=== PATIENT | male | born 1955 | race Caucasian/White ===

== ENCOUNTER 2019-07-18 13:35 | Inpatient (IN) | payer OTHER ==
[2019-07-18] MEDS ORDERED: PIPERACILLIN/TAZOB 4.5 GM 4.5 GM in DEXTROSE 5%-WATER 100 ML IVPB ONE (15:42)
[2019-07-18] MEDS ORDERED: VANCOMYCIN 1,000 MG in DEXTROSE 5%-WATER - 250 ML IVPB ONE (15:43)
--- NOTE | 2019-07-18 16:12 | PDOC ---
History of Present Illness - General Chief Complaint: Wound Stated Complaint: LT FOOT PAIN/WOUND Time Seen by Provider: 07/18/19 14:30 History Source: Patient Exam Limitations: No Limitations - History of Present Illness Initial Comments: 07/18/19 15:12 64-year-old male with history of uncontrolled diabetes presents ED with worsening left toe wound. Patient states due to the neuropathy he is unable to feel discomfort but states over the past month the skin has darkened and now has open wounds to the left third toe. Patient states left second toe amputation [address] Gonzales and seen approximately 1 year ago. Patient states has been seen by the room service associate on [facility], last visit being 2 months ago. Patient denies fever, chills or radiation of pain. Is this a multiple visit Asthma Patient?: Yes Timing/Duration: getting worse Severity: moderate Associated Symptoms: reports: other Past History - Travel Traveled outside of the country in the last 30 days: No Close contact w/someone who was outside of country & ill: No - Past Medical History Allergies/Adverse Reactions: Allergies Allergy/AdvReac Type Severity Reaction Status Date / Time No Known Allergies Allergy Verified 07/18/19 13:52 Home Medications: Ambulatory Orders Collagenase Clostridium Hist. [Santyl] 1 applic TP DAILY #90 oint...g. 07/27/17 Becaplermin [Regranex] 15 gm TP DAILY #1 gel..gram. 08/07/17 COPD: No Diabetes: Yes HTN: Yes - Psycho Social/Smoking Cessation Hx Smoking History: Never smoked Have you smoked in the past 12 months: No Information on smoking cessation initiated: No Hx Alcohol Use: No Drug/Substance Use Hx: No Patient Lives Alone: Yes Lives with/in: lives alone Review of Systems - Review of Systems Able to Perform ROS?: Yes Constitutional: No: Symptoms Reported HEENTM: No: Symptoms Reported Respiratory: No: Symptoms reported Cardiac (ROS): No: Symptoms Reported ABD/GI: No: Symptoms Reported Musculoskeletal: Yes: Other Integumentary: Yes: Change in Color Neurological: No: Symptoms reported Endocrine: No: Symptoms Reported Hematologic/Lymphatic: No: Symptoms Reported *Physical Exam - Vital Signs Last Vital Signs Temp Pulse Resp BP Pulse Ox 98.1 F 106 H 16 151/63 100 07/18/19 13:48 07/18/19 13:48 07/18/19 13:48 07/18/19 13:48 07/18/19 13:48 - Physical Exam General Appearance: Yes: Nourished, Appropriately Dressed. No: Apparent Distress HEENT: negative: Pale Conjunctivae Neck: positive: Supple Respiratory/Chest: positive: Lungs Clear, Normal Breath Sounds. negative: Respiratory Distress, Accessory Muscle Use Cardiovascular: positive: Regular Rhythm, Tachycardia (100). negative: Murmur Vascular Pulses: Dorsalis-Pedis (R): 2+, Doralis-Pedis (L): 1+ Extremity: positive: Other (Noted necrotic left third toe with opened nonodorous wound to the base of toe dorsally and on the palmar aspect. Patient also with 2 circular cm deep wound to the base of left first toe with intact surrounding skin. No tactile sensation to left third toe) Integumentary: positive: Other Neurologic: positive: Motor Strength 5/5 (Ambulatory) ED Treatment Course - LABORATORY CBC & Chemistry Diagram: 07/18/19 16:23 07/18/19 16:23 - RADIOLOGY Radiology Studies Ordered: Category Date Time Status TOE(S) LEFT [RAD] Stat Radiology 07/18/19 15:40 Ordered Medical Decision Making - Medical Decision Making 07/18/19 15:20 Chief complaint: Worsening left toe wound uncontrolled diabetes no other complaints. Exam. Patient with necrotic left third toe along with wound to the base of toe. Patient also with open wound to the palmar aspect of left foot near the left first toe base. Plan: Septic work-up including preop labs, x-ray along with Zosyn and vancomycin. 07/18/19 17:53 Laboratory Tests 07/18/19 07/18/19 07/18/19 16:23 16:23 16:23 WBC 10.9 H Hgb 12.8 Hct 38.6 Absolute Neuts (auto) 9.1 H Neutrophils % 83.6 H PT with INR INR Sodium 130 L Potassium 4.5 Chloride 95 L Carbon Dioxide 26 Anion Gap 9 BUN 12.2 Creatinine 1.0 Est GFR (CKD-EPI)AfAm 93.08 Est GFR (CKD-EPI)NonAf 80.31 Random Glucose 587 H* Lactic Acid Calcium 9.1 Total Bilirubin 0.4 AST 8 L ALT 16 Alkaline Phosphatase 100 Total Protein 7.7 Albumin 2.9 L Blood Type A POSITIVE Antibody Screen Negative 07/18/19 07/18/19 16:23 16:23 WBC Hgb Hct Absolute Neuts (auto) Neutrophils % PT with INR 13.50 H INR 1.14 H Sodium Potassium Chloride Carbon Dioxide Anion Gap BUN Creatinine Est GFR (CKD-EPI)AfAm Est GFR (CKD-EPI)NonAf Random Glucose Lactic Acid 1.7 Calcium Total Bilirubin AST ALT Alkaline Phosphatase Total Protein Albumin Blood Type Antibody Screen Asked patient last time he took his diabetic medication and states it has been a few months since his insurance lapsed and has not seen his PMD. Ordered second liter of fluid along with beta hydroxy and VBG. 07/18/19 18:46 X-ray reviewed by senior technical writer with noted bony destruction Of third digit along with communication to the first metatarsal micro blogsent to hospitalist. patient pending repeat BGM 07/18/19 18:[address] Lezama is admitting today. Call placed to Dr. Lezama. Discharge - Discharge Information Problems reviewed: Yes Clinical Impression/Diagnosis: Diabetic foot ulcer, Uncontrolled diabetes mellitus - Admission Yes - Follow up/Referral Referrals: Jasvir Solano MD [Primary Care Provider] - - Patient Discharge Instructions - Post Discharge Activity
[2019-07-18] MEDS ORDERED: PIPERACILLIN/TAZOB 4.5 GM 4.5 GM/100 ML BAG IVPB ONE (17:00)
[2019-07-18 17:01] LABS: BASO % 0.3 % (0-2.0); HEMATOCRIT 38.6 % (35.4-49); HEMOGLOBIN 12.8 GM/dL (11.7-16.9); LYMPH % 8.4 % (8-40); MCH 29.2 pg (25.7-33.7); MCHC 33.2 g/dl (32.0-35.9); MEAN CELL VOLUME 87.7 fl (80-96); MEAN PLT VOLUME 8.9 fl (7.5-11.1); MONO % 6.7 % (3.8-10.2); NEUT % 83.6 % (42.8-82.8); PLATELET COUNT 342 K/MM3 (134-434); RDW 12.6 % (11.9-15.9); WHITE BLOOD COUNT 10.9 K/mm3 (4.0-10.0)
[2019-07-18] MEDS ORDERED: VANCOMYCIN 1 GRAM (PRE-DOCKED) 1,000 MG/250 ML BAG IVPB ONE (17:01)
[2019-07-18 17:12] LABS: INR 1.14 (0.83-1.09); PROTHROMBIN TIME (PATIENT) 13.5 SEC (9.7-13.0)
[2019-07-18 17:33] LABS: ALBUMIN 2.9 g/dl (3.4-5.0); BILIRUBIN,TOTAL 0.4 mg/dL (0.2-1); BLOOD UREA NITROGEN 12.2 mg/dL (7-18); CALCIUM 9.1 mg/dL (8.5-10.1); POTASSIUM 4.5 mmol/L (3.5-5.1); TOT PROT 7.7 g/dl (6.4-8.2)
[2019-07-18] MEDS ORDERED: SODIUM CHLORIDE 1,000 ML IV STA ×2 (17:52→17:55)
--- NOTE | 2019-07-18 21:25 | HP ---
Admitting History and Physical - Primary Care Physician PCP: Rick Lezama - Admission History of Present Illness: 64-year-old male with history of uncontrolled diabetes presents ED with worsening left toe wound. Patient states due to the neuropathy he is unable to feel discomfort but states over the past month the skin has darkened and now has open wounds to the left third toe. Patient states left second toe amputation [address] Gonzales and seen approximately 1 year ago. Patient states has been seen by the intellectual property counsel on [facility], last visit being 2 months ago. Patient denies fever, chills or radiation of pain. - Past Medical History Endocrine: Yes: Diabetes Mellitus - Past Surgical History Past Surgical History: Yes: Amputation (ampuitation of the left 2nd toe 5 years ago, and amputation of the right 1st and 2nd toes 2 years ago) - Smoking History Smoking history: Never smoked Have you smoked in the past 12 months: No - Alcohol/Substance Use Hx Alcohol Use: No Home Medications - Allergies Allergies/Adverse Reactions: Allergies Allergy/AdvReac Type Severity Reaction Status Date / Time No Known Allergies Allergy Verified 07/18/19 13:52 - Home Medications Home Medications: Ambulatory Orders Collagenase Clostridium Hist. [Santyl] 1 applic TP DAILY #90 oint...g. 07/27/17 Becaplermin [Regranex] 15 gm TP DAILY #1 gel..gram. 08/07/17 Physical Examination Vital Signs: Vital Signs Temperature 98.1 F 07/18/19 13:48 Pulse Rate 106 H 07/18/19 13:48 Respiratory Rate 16 07/18/19 13:48 Blood Pressure 151/63 07/18/19 13:48 O2 Sat by Pulse Oximetry (%) 100 07/18/19 13:48 Constitutional: Yes: No Distress HENT: Yes: Atraumatic Neck: Yes: Supple Cardiovascular: Yes: Regular Rate and Rhythm Respiratory: Yes: CTA Bilaterally Gastrointestinal: Yes: Normal Bowel Sounds Extremities: Yes: Other (L third toe gangrene) Edema: No Neurological: Yes: Alert, Oriented Labs: CBC, BMP 07/18/19 16:23 07/18/19 16:23 Problem List - Problems (1) Diabetic foot ulcer Assessment/Plan: on iv abx wound care Code(s): E11.621 - TYPE 2 DIABETES MELLITUS WITH FOOT ULCER; L97.509 - NON- PRESSURE CHRONIC ULCER OTH PRT UNSP FOOT W UNSP SEVERITY (2) Uncontrolled diabetes mellitus Assessment/Plan: insulin , bgms Code(s): E11.65 - TYPE 2 DIABETES MELLITUS WITH HYPERGLYCEMIA (3) Open wound of left great toe Code(s): S91.102A - UNSP OPEN WOUND OF LEFT GREAT TOE W/O DAMAGE TO NAIL, INIT Qualifiers: Encounter type: subsequent encounter Qualified Code(s): S91.102D - Unspecified open wound of left great toe without damage to nail, subsequent encounter Assessment/Plan Laboratory Tests 07/18/19 07/18/19 07/18/19 16:23 16:23 16:23 WBC 10.9 H RBC 4.40 Hgb 12.8 Hct 38.6 MCV 87.7 MCH 29.2 MCHC 33.2 RDW 12.6 Plt Count 342 MPV 8.9 Absolute Neuts (auto) 9.1 H Neutrophils % 83.6 H Lymphocytes % 8.4 Monocytes % 6.7 Eosinophils % 1.0 Basophils % 0.3 Nucleated RBC % 0 PT with INR INR Sodium 130 L Potassium 4.5 Chloride 95 L Carbon Dioxide 26 Anion Gap 9 BUN 12.2 Creatinine 1.0 Est GFR (CKD-EPI)AfAm 93.08 Est GFR (CKD-EPI)NonAf 80.31 POC Glucometer Random Glucose 587 H* Lactic Acid Calcium 9.1 Total Bilirubin 0.4 AST 8 L ALT 16 Alkaline Phosphatase 100 Total Protein 7.7 Albumin 2.9 L Beta-Hydroxybutyrate 12.7 H Blood Type A POSITIVE Antibody Screen Negative 07/18/19 07/18/19 07/18/19 16:23 16:23 19:13 WBC RBC Hgb Hct MCV MCH MCHC RDW Plt Count MPV Absolute Neuts (auto) Neutrophils % Lymphocytes % Monocytes % Eosinophils % Basophils % Nucleated RBC % PT with INR 13.50 H INR 1.14 H Sodium Potassium Chloride Carbon Dioxide Anion Gap BUN Creatinine Est GFR (CKD-EPI)AfAm Est GFR (CKD-EPI)NonAf POC Glucometer 443 Random Glucose Lactic Acid 1.7 Calcium Total Bilirubin AST ALT Alkaline Phosphatase Total Protein Albumin Beta-Hydroxybutyrate Blood Type Antibody Screen Active Medications Generic Name Dose Route Start Last Admin Trade Name Freq PRN Reason Stop Dose Admin Acetaminophen 650 mg 07/18/19 21:29 07/19/19 15:40 Tylenol - PO 650 mg Q6H PRN Administration FEVER Heparin Sodium (Porcine) 5,000 unit 07/18/19 22:00 07/19/19 09:03 Heparin - SQ 5,000 unit BID CANDELARIA Administration Piperacillin Sod/Tazobactam 50 mls @ 100 mls/hr 07/19/19 12:15 07/19/19 17:01 Sod 3.375 gm/ Dextrose IVPB 100 mls/hr Q8H-IV CANDELARIA Administration Protocol Insulin Aspart 1 vial 07/18/19 22:00 07/19/19 16:33 Novolog Vial Sliding Scale - SQ 8 unit ACHS CANDELARIA Administration Protocol Oxycodone HCl 10 mg 07/19/19 11:43 07/19/19 15:39 Roxicodone - PO 10 mg Q6H PRN Administration PAIN scale 6-10
[2019-07-18] MEDS ORDERED: ACETAMINOPHEN 325 MG TABLET (FP) PO PRN (21:29)
[2019-07-19] MEDS ORDERED: INSULIN (NOVOLOG) ASPART 100 UNITS/ML 10ML VIAL ONE ×3 (01:40→10:58)
[2019-07-19] MEDS ORDERED: HEPARIN NA (PORCINE) 5,000 UNITS/ML 1ML VIAL ONE (01:41)
[2019-07-19] MEDS: HEPARIN NA (PORCINE) 5,000 UNITS/ML 1ML VIAL SQ SCH ×3 (01:45→21:53)
[2019-07-19] MEDS: INSULIN SLIDING SCALE (NOVOLOG) 1 VIAL SQ SCH ×5 (02:04→21:53)
[2019-07-19 06:17] VITALS: BMI 29.8
[2019-07-19 08:12] LABS: BASO % 0.8 % (0-2.0); EOS % 2.6 % (0-4.5); HEMOGLOBIN 11.7 GM/dL (11.7-16.9); LYMPH % 16.9 % (8-40); MCH 29.3 pg (25.7-33.7); MCHC 34.4 g/dl (32.0-35.9); MEAN CELL VOLUME 85.3 fl (80-96); MEAN PLT VOLUME 8.8 fl (7.5-11.1); MONO % 8.4 % (3.8-10.2); NEUT % 71.3 % (42.8-82.8); PLATELET COUNT 299 K/MM3 (134-434); RBC 3.99 M/mm3 (4.00-5.60); RDW 12.6 % (11.9-15.9); WHITE BLOOD COUNT 8.1 K/mm3 (4.0-10.0)
[2019-07-19 08:19] LABS: ALBUMIN 2.3 g/dl (3.4-5.0); BILIRUBIN,TOTAL 0.5 mg/dL (0.2-1); CALCIUM 8.6 mg/dL (8.5-10.1); CREATININE 0.6 mg/dL (0.55-1.3); POTASSIUM 3.5 mmol/L (3.5-5.1); TOT PROT 6.4 g/dl (6.4-8.2)
--- NOTE | 2019-07-19 08:28 | CONSULT ---
- Consultation REQUESTING PROVIDER: VASCULAR SURGERY CONSULT REQUEST: We have been asked to surgically evaluate this patient for left foot necrotic toe ulcer; 2nd toe PCP: Rick Lezama HPI: Called to eval 64 yo male with PMHx as noted below. [facility] for further evaluation of his left foot 3rd toe necrotic (dry), bottom of foot with clean ulcer. Uncontrolled diabetes with neuropathy. Per medical charting, patient is followed by a Warehouse Forklift Operator (patient can't remember name of), last visit ~ 2 months ago. Patient [facility] by [facility]. States he was last seen at [facility] about 2 months ago for same problem. Denies n/v/f/c, CP, palpitations, irregular heart beat, SOB or YAN. PMHx: DM with neuropathy PSHx: Amputation (right foot:1st & 2nd toes 2017) Home Meds: Becaplermin [Regranex] 15 gm TP DAILY Allergies: NKDA ROS: CONSTITUTIONAL: Absent: diaphoresis, generalized weakness, malaise, loss of appetite, weight change CARDIOVASCULAR: Absent: lightheadedness, peripheral edema RESPIRATORY: Absent: cough, wheezing, stridor, hemoptysis GASTROINTESTINAL:Absent: abdominal pain, abdominal distension, melena, hematochezia GENITOURINARY: Absent: dysuria, frequency, urgency, hesitancy, hematuria, flank pain, genital pain MUSCULOSKELETAL: Absent: myalgia, arthralgia, joint swelling, back pain, neck pain SKIN: Absent: rash, itching, pallor HEMATOLOGIC/IMMUNOLOGIC: Absent: easy bleeding, easy bruising, lymphadenopathy NEUROLOGIC: Absent: headache, focal weakness, dizziness, unsteady gait, seizure , mental status changes, PSYCHIATRIC: Absent: anxiety, depression, suicidal or homicidal ideation, hallucinations. PE: GENERAL: A&O. NAD. HEAD: Normal with no signs of trauma. EYES: PERRL, sclera anicteric, conjunctiva clear. LUNGS: CTA bilat HEART: RRR ABDOMEN: Soft, nontender, not distended, normoactive bowel sounds, no guarding, no rebound, no masses. No organomegaly. MUSCULOSKELETAL: Normal ROM at all joints. No bony deformities or tenderness. No CVA tenderness. UE: 2+ pulses, warm, well-perfused. No cyanosis. Cap refill <2 seconds. No peripheral edema. LE: RLE: 1st & 2nd toe amputation...well healed warm. DP & PT palpable. LLE: warm. 3rd toe with necrotic toe (demarcated, no odor). 2nd toe amputation. Palpable DP & PT. Venous stasis changes. Peripheral neuropathy (decreased sensation to light touch). Plantar ulcer (shallow, clean, ~ 2.54 x 2.54 cm) to base of left first toe with intact surrounding skin. NEUROLOGICAL: Normal speech, gait not observed. PSYCH: Cooperative. Good eye contact. Appropriate mood and affect. Last Vital Signs Temp Pulse Resp BP Pulse Ox 97.9 F 73 18 143/82 100 07/19/19 06:11 07/19/19 06:11 07/19/19 06:11 07/19/19 06:11 07/19/19 03:31 CBC, BMP 07/19/19 06:53 07/19/19 06:53 INR, PTT INR 1.14 (0.83-1.09) H 07/18/19 16:23 Blood Type Blood Type A POSITIVE 07/18/19 16:23 Problem List - Problems (1) Toe necrosis Assessment/Plan: Cont wound management as ordered. No need for further vascular intervention as patient has palpable DP & PT. Further management as per Podiatry if warranted --> oM consulted. Tight glycemic control f/u as out-patient with Dr. Gonzales for continued wound management On behalf of Dr. Gonzales, thank you for the opportunity to participate in your patient's care. Code(s): I96 - GANGRENE, NOT ELSEWHERE CLASSIFIED (2) Diabetic foot ulcer Code(s): E11.621 - TYPE 2 DIABETES MELLITUS WITH FOOT ULCER; L97.509 - NON- PRESSURE CHRONIC ULCER OTH PRT UNSP FOOT W UNSP SEVERITY (3) Uncontrolled diabetes mellitus Code(s): E11.65 - TYPE 2 DIABETES MELLITUS WITH HYPERGLYCEMIA Visit type - Case Type Case Type: ED Admission - Emergency Emergency Visit: Yes ED Registration Date: 07/18/19 Care time: The patient presented to the Emergency Department on the above date and was hospitalized for further evaluation of their emergent condition. - New patient This patient is new to me today: Yes Date on this admission: 07/19/19
[2019-07-19] MEDS ORDERED: oxyCODONE HCL 5 MG TABLET PO PRN (11:43)
--- NOTE | 2019-07-19 12:11 | CON.ID ---
Consult Consult Specialty:: infectious diseases Referred by:: dr shultz Reason for Consultation:: cellulitis of the foot and gangrene of the toe - History of Present Illness Chief Complaint: non healing wound of the leg with change in color History of Present Illness: 64-year-old male with history of uncontrolled diabetes admitted with worsening left toe wound. Patient states due to the neuropathy he is unable to feel discomfort but states over the past month the skin has darkened and now has open wounds to the left third toe. Patient states left second toe amputation [address] Gonzales and seen approximately 1 year ago. Patient states has been seen by the assistant professor of anthropology on [facility], last visit being 2 months ago. Patient denies fever, chills or radiation of pain. patient mentions that this has just not been healing and the color has changed to black - History Source History Provided By: Patient, Medical Record Limitations to Obtaining History: Language Barrier - Past Medical History Endocrine: Yes: Diabetes Mellitus - Past Surgical History Past Surgical History: Yes: Amputation (ampuitation of the left 2nd toe 5 years ago, and amputation of the right 1st and 2nd toes 2 years ago) - Alcohol/Substance Use Hx Alcohol Use: No - Smoking History Smoking history: Never smoked Have you smoked in the past 12 months: No Home Medications - Allergies Allergies/Adverse Reactions: Allergies Allergy/AdvReac Type Severity Reaction Status Date / Time No Known Allergies Allergy Verified 07/18/19 13:52 - Home Medications Home Medications: Ambulatory Orders Collagenase Clostridium Hist. [Santyl] 1 applic TP DAILY #90 oint...g. 07/27/17 Becaplermin [Regranex] 15 gm TP DAILY #1 gel..gram. 08/07/17 Review of Systems - Review of Systems Constitutional: reports: No Symptoms Eyes: reports: No Symptoms HENT: reports: No Symptoms Neck: reports: No Symptoms Cardiovascular: reports: No Symptoms Respiratory: reports: No Symptoms Gastrointestinal: reports: No Symptoms Genitourinary: reports: No Symptoms Musculoskeletal: reports: Other Integumentary: reports: Erythema, Wound Neurological: reports: No Symptoms Endocrine: reports: No Symptoms Hematology/Lymphatic: reports: No Symptoms Psychiatric: reports: No Symptoms Physical Exam Vital Signs: Vital Signs Temperature 98.7 F 07/19/19 10:00 Pulse Rate 78 07/19/19 10:00 Respiratory Rate 18 07/19/19 10:00 Blood Pressure 139/69 07/19/19 10:00 O2 Sat by Pulse Oximetry (%) 97 07/19/19 09:00 Constitutional: Yes: Well Nourished, No Distress, Calm Eyes: Yes: Conjunctiva Clear HENT: Yes: Atraumatic, Normocephalic Cardiovascular: Yes: Regular Rate and Rhythm Respiratory: Yes: Regular, CTA Bilaterally Gastrointestinal: Yes: Normal Bowel Sounds, Soft Musculoskeletal: Yes: WNL Extremities: Yes: Erythema, Other Integumentary: Yes: Other (3rd toe with necrotic toe) Wound/Incision: Yes: Open to air, Draining, Other (gangrene of the left 3rd toe) Neurological: Yes: Alert, Oriented Labs: CBC, BMP 07/19/19 06:53 07/19/19 06:53 Imaging - Results X-ray: Report Reviewed, Image Reviewed Assessment/Plan this patient coming in with diabetic wound and the discoloration of the toe after looking at the toe this is gangrene plan needs amputation wound care abx started await for cx report rest as per the team
[2019-07-19] MEDS ORDERED: DEXTROSE 5%-WATER - 50 ML IVPB ONE ×2 (12:45→16:39)
[2019-07-19] MEDS ORDERED: PIPERACILLIN/TAZOBACTAM 3.375 GM VIAL IVPB ONE ×2 (12:45→16:39)
[2019-07-19] MEDS: PIPERACILLIN/TAZOB 3.375 GM 3.375 GM in DEXTROSE 5%-WATER - 50 ML IVPB SCH ×2 (12:57→17:01)
--- NOTE | 2019-07-19 15:39 | CONSULT ---
Consult - text type - Consultation Consultation Note: Podiatry Consultation: Pleasant 64 year old diabetic male presents with left foot diabetic ulcer and gangrenous changes third digit. Patient endorses a one month history of third digit breakdown. He has noted the toe getting progressively worse and now is starting to detach from the foot. He denies F/V/N/C/SOB/CP. He is afebrile. He does report seeing a supervising editor news reel outside of hospital, does not know the name, and has been seen in the past at [facility]. PMHx: IDDM, HTN, s/p multiple amputations bilateral feet Meds: noted ALL: NKMA THAIS: L foot: pedal pulses palpable 2/4, TG wnl. There is dry gangrenous changes distal 1/2 of third digit, fibrotic base proximally, mummified distal tip of digit. Plantar sub-metatarsal skin macerated with some serous drainage, no purulent drainage, no soft tissue crepitus. There is a sub-first metatarsal diabetic ulcer with granular base, hyperkeratotic edges, no bone exposed, no purulence, no fluctuance, no streaking cellulitis. L foot XR: destructive process distal phalanx third digit Imp: 64 year old diabetic male with left sub-first metatarsal diabetic ulcer, gangrene with osteomyelitis third digit 1. IV abx per infectious disease 2. Local care 3. MRI left foot to evaluate level of osteomyelitis third digit and osteomyelitis first MTPJ 4. Will need amputation. Discussed this with patient. Will plan for . 5. Will follow. Thank you for the courtesy of this consultation. Max Hassan DPM
--- NOTE | 2019-07-19 18:59 | PN ---
Progress Note, Physician - Current Medication List Current Medications: Active Medications Acetaminophen (Tylenol -) 650 mg PO Q6H PRN PRN Reason: FEVER Last Admin: 07/19/19 15:40 Dose: 650 mg Heparin Sodium (Porcine) (Heparin -) 5,000 unit SQ BID CANDELARIA Last Admin: 07/19/19 09:03 Dose: 5,000 unit Piperacillin Sod/Tazobactam (Sod 3.375 gm/ Dextrose) 50 mls @ 100 mls/hr IVPB Q8H-IV CANDELARIA; Protocol Last Admin: 07/19/19 17:01 Dose: 100 mls/hr Insulin Aspart (Novolog Vial Sliding Scale -) 1 vial SQ ACHS CANDELARIA; Protocol Last Admin: 07/19/19 16:33 Dose: 8 unit Oxycodone HCl (Roxicodone -) 10 mg PO Q6H PRN PRN Reason: PAIN scale 6-10 Last Admin: 07/19/19 15:39 Dose: 10 mg - Objective Vital Signs: Vital Signs Temperature 99.0 F 07/19/19 13:44 Pulse Rate 81 07/19/19 13:44 Respiratory Rate 20 07/19/19 13:44 Blood Pressure 139/61 07/19/19 13:44 O2 Sat by Pulse Oximetry (%) 97 07/19/19 09:00 Constitutional: Yes: No Distress HENT: Yes: Atraumatic Neck: Yes: Supple Cardiovascular: Yes: Regular Rate and Rhythm Respiratory: Yes: CTA Bilaterally Gastrointestinal: Yes: Normal Bowel Sounds Extremities: Yes: Other (L foot infection) Neurological: Yes: Alert, Oriented Labs: CBC, BMP 07/19/19 06:53 07/19/19 06:53 INR, PTT INR 1.14 (0.83-1.09) H 07/18/19 16:23 Problem List - Problems (1) Diabetic foot ulcer Assessment/Plan: on iv abx wound care Code(s): E11.621 - TYPE 2 DIABETES MELLITUS WITH FOOT ULCER; L97.509 - NON- PRESSURE CHRONIC ULCER OTH PRT UNSP FOOT W UNSP SEVERITY (2) Uncontrolled diabetes mellitus Assessment/Plan: insulin , bgms Code(s): E11.65 - TYPE 2 DIABETES MELLITUS WITH HYPERGLYCEMIA (3) Open wound of left great toe Code(s): S91.102A - UNSP OPEN WOUND OF LEFT GREAT TOE W/O DAMAGE TO NAIL, INIT Qualifiers: Encounter type: subsequent encounter Qualified Code(s): S91.102D - Unspecified open wound of left great toe without damage to nail, subsequent encounter
[2019-07-20] MEDS ORDERED: PIPERACILLIN/TAZOBACTAM 3.375 GM VIAL IVPB ONE ×3 (01:18→16:27)
[2019-07-20] MEDS ORDERED: DEXTROSE 5%-WATER - 50 ML IVPB ONE ×3 (01:18→16:28)
[2019-07-20] MEDS: PIPERACILLIN/TAZOB 3.375 GM 3.375 GM in DEXTROSE 5%-WATER - 50 ML IVPB SCH ×3 (01:51→17:08)
[2019-07-20] MEDS: INSULIN SLIDING SCALE (NOVOLOG) 1 VIAL SQ SCH ×4 (06:06→22:50)
[2019-07-20] MEDS: HEPARIN NA (PORCINE) 5,000 UNITS/ML 1ML VIAL SQ SCH ×2 (09:35→22:49)
--- NOTE | 2019-07-20 11:24 | PN ---
Progress Note, Physician History of Present Illness: stable no new issues - Current Medication List Current Medications: Active Medications Acetaminophen (Tylenol -) 650 mg PO Q6H PRN PRN Reason: FEVER Last Admin: 07/19/19 15:40 Dose: 650 mg Heparin Sodium (Porcine) (Heparin -) 5,000 unit SQ BID CANDELARIA Last Admin: 07/20/19 09:35 Dose: 5,000 unit Piperacillin Sod/Tazobactam (Sod 3.375 gm/ Dextrose) 50 mls @ 100 mls/hr IVPB Q8H-IV CANDELARIA; Protocol Last Admin: 07/20/19 09:36 Dose: 100 mls/hr Insulin Aspart (Novolog Vial Sliding Scale -) 1 vial SQ ACHS CANDELARIA; Protocol Last Admin: 07/20/19 06:06 Dose: 6 unit Oxycodone HCl (Roxicodone -) 10 mg PO Q6H PRN PRN Reason: PAIN scale 6-10 Last Admin: 07/19/19 15:39 Dose: 10 mg - Objective Vital Signs: Vital Signs Temperature 98.4 F 07/20/19 10:00 Pulse Rate 79 07/20/19 10:00 Respiratory Rate 20 07/20/19 10:00 Blood Pressure 110/59 L 07/20/19 10:00 O2 Sat by Pulse Oximetry (%) 99 07/20/19 09:00 Constitutional: Yes: No Distress, Calm Cardiovascular: Yes: S1, S2 Respiratory: Yes: Regular, CTA Bilaterally Gastrointestinal: Yes: Normal Bowel Sounds, Soft Musculoskeletal: Yes: WNL Extremities: Yes: Other Wound/Incision: Yes: Dressing Dry and Intact Neurological: Yes: Alert, Oriented Psychiatric: Yes: Alert, Oriented Labs: CBC, BMP 07/19/19 06:53 07/19/19 06:53 INR, PTT INR 1.14 (0.83-1.09) H 07/18/19 16:23 Assessment/Plan Problem List - Problems (1) Diabetic foot ulcer Code(s): E11.621 - TYPE 2 DIABETES MELLITUS WITH FOOT ULCER; L97.509 - NON- PRESSURE CHRONIC ULCER OTH PRT UNSP FOOT W UNSP SEVERITY (2) Uncontrolled diabetes mellitus Code(s): E11.65 - TYPE 2 DIABETES MELLITUS WITH HYPERGLYCEMIA (3) Open wound of left great toe Code(s): S91.102A - UNSP OPEN WOUND OF LEFT GREAT TOE W/O DAMAGE TO NAIL, INIT Qualifiers: Encounter type: subsequent encounter Qualified Code(s): S91.102D - Unspecified open wound of left great toe without damage to nail, subsequent encounter wound infection gangrene of the toe plan continue abx await for identification and sensitivities wound care rest as per the team
--- NOTE | 2019-07-20 16:04 | PN ---
Progress Note (short form) - Note Progress Note: Podiatry Consultation: Pleasant 64 year old diabetic male presents with left foot diabetic ulcer and gangrenous changes third digit. Understands he will need the digit amputated . Is pending MRI still for eval of plantar 1st MPJ ulceration. PMHx: IDDM, HTN, s/p multiple amputations bilateral feet Meds: noted ALL: NKMA THAIS: L foot: pedal pulses palpable 2/4, TG wnl. There is dry gangrenous changes distal 1/2 of third digit, fibrotic base proximally, mummified distal tip of digit. Plantar sub-metatarsal skin macerated with some serous drainage, increased maceration noted with some drainage, There is a sub-first metatarsal diabetic ulcer with granular base, hyperkeratotic edges, no bone exposed, no purulence, no fluctuance, no streaking cellulitis. L foot XR: destructive process distal phalanx third digit Imp: 64 year old diabetic male with left sub-first metatarsal diabetic ulcer, gangrene with osteomyelitis third digit Evaluated and reviewed betadine applied for amp tomorrow at Noon NPO past midnight Will follow
--- NOTE | 2019-07-20 16:31 | PN ---
Progress Note, Physician - Current Medication List Current Medications: Active Medications Acetaminophen (Tylenol -) 650 mg PO Q6H PRN PRN Reason: FEVER Last Admin: 07/19/19 15:40 Dose: 650 mg Heparin Sodium (Porcine) (Heparin -) 5,000 unit SQ BID CANDELARIA Last Admin: 07/20/19 09:35 Dose: 5,000 unit Piperacillin Sod/Tazobactam (Sod 3.375 gm/ Dextrose) 50 mls @ 100 mls/hr IVPB Q8H-IV CANDELARIA; Protocol Last Admin: 07/20/19 09:36 Dose: 100 mls/hr Insulin Aspart (Novolog Vial Sliding Scale -) 1 vial SQ ACHS CANDELARIA; Protocol Last Admin: 07/20/19 16:17 Dose: 10 unit Oxycodone HCl (Roxicodone -) 10 mg PO Q6H PRN PRN Reason: PAIN scale 6-10 Last Admin: 07/19/19 15:39 Dose: 10 mg - Objective Vital Signs: Vital Signs Temperature 98.5 F 07/20/19 15:31 Pulse Rate 80 07/20/19 15:31 Respiratory Rate 20 07/20/19 15:31 Blood Pressure 131/59 L 07/20/19 15:31 O2 Sat by Pulse Oximetry (%) 99 07/20/19 09:00 Constitutional: Yes: No Distress HENT: Yes: Atraumatic Neck: Yes: Supple Cardiovascular: Yes: Regular Rate and Rhythm Respiratory: Yes: CTA Bilaterally Gastrointestinal: Yes: Normal Bowel Sounds Extremities: Yes: WNL Edema: No Neurological: Yes: Alert, Oriented Labs: CBC, BMP 07/19/19 06:53 07/19/19 06:53 INR, PTT INR 1.14 (0.83-1.09) H 07/18/19 16:23 Problem List - Problems (1) Diabetic foot ulcer Assessment/Plan: on iv abx wound care Code(s): E11.621 - TYPE 2 DIABETES MELLITUS WITH FOOT ULCER; L97.509 - NON- PRESSURE CHRONIC ULCER OTH PRT UNSP FOOT W UNSP SEVERITY (2) Uncontrolled diabetes mellitus Assessment/Plan: insulin , bgms Code(s): E11.65 - TYPE 2 DIABETES MELLITUS WITH HYPERGLYCEMIA (3) Open wound of left great toe Code(s): S91.102A - UNSP OPEN WOUND OF LEFT GREAT TOE W/O DAMAGE TO NAIL, INIT Qualifiers: Encounter type: subsequent encounter Qualified Code(s): S91.102D - Unspecified open wound of left great toe without damage to nail, subsequent encounter (4) Osteomyelitis Assessment/Plan: iv abx s/p toe surgery Code(s): M86.9 - OSTEOMYELITIS, UNSPECIFIED (5) Toe necrosis Code(s): I96 - GANGRENE, NOT ELSEWHERE CLASSIFIED
[2019-07-21] MEDS ORDERED: SODIUM CHLORIDE 1,000 ML IV SCH (00:30)
[2019-07-21] MEDS ORDERED: PIPERACILLIN/TAZOBACTAM 3.375 GM VIAL IVPB ONE ×3 (01:27→16:06)
[2019-07-21] MEDS ORDERED: DEXTROSE 5%-WATER - 50 ML IVPB ONE ×3 (01:27→16:07)
[2019-07-21] MEDS: PIPERACILLIN/TAZOB 3.375 GM 3.375 GM in DEXTROSE 5%-WATER - 50 ML IVPB SCH ×3 (01:33→18:21)
[2019-07-21] MEDS: INSULIN SLIDING SCALE (NOVOLOG) 1 VIAL SQ SCH ×5 (06:16→21:20)
[2019-07-21 08:15] LABS: BASO % 0.7 % (0-2.0); EOS % 2.8 % (0-4.5); HEMATOCRIT 35.4 % (35.4-49); HEMOGLOBIN 12.1 GM/dL (11.7-16.9); LYMPH % 20.2 % (8-40); MCH 29.4 pg (25.7-33.7); MCHC 34.1 g/dl (32.0-35.9); MEAN CELL VOLUME 86.2 fl (80-96); MEAN PLT VOLUME 8.5 fl (7.5-11.1); MONO % 7.5 % (3.8-10.2); NEUT % 68.8 % (42.8-82.8); PLATELET COUNT 296 K/MM3 (134-434); RDW 12.6 % (11.9-15.9); WHITE BLOOD COUNT 6.3 K/mm3 (4.0-10.0)
[2019-07-21 08:21] LABS: INR 1.16 (0.83-1.09); PROTHROMBIN TIME (PATIENT) 13.7 SEC (9.7-13.0)
[2019-07-21 08:55] LABS: ALBUMIN 2.4 g/dl (3.4-5.0); BILIRUBIN,TOTAL 0.5 mg/dL (0.2-1); BLOOD UREA NITROGEN 8.7 mg/dL (7-18); CALCIUM 8.8 mg/dL (8.5-10.1); CREATININE 0.8 mg/dL (0.55-1.3); POTASSIUM 4.5 mmol/L (3.5-5.1); TOT PROT 6.8 g/dl (6.4-8.2)
[2019-07-21] MEDS: HEPARIN NA (PORCINE) 5,000 UNITS/ML 1ML VIAL SQ SCH ×2 (10:15→21:19)
[2019-07-21] MEDS ORDERED: LIDOCAINE HCL 1%, 10 MG/ML (20ML VIAL) ONE (11:13)
[2019-07-21] MEDS ORDERED: BUPIVACAINE HCL/PF 0.5% (5 MG/ML) 30 ML VIAL IJ ONE (11:13)
[2019-07-21] MEDS ORDERED: ONDANSETRON 4 MG/2 ML VIAL IVPUSH PRN ×2 (11:37→13:15)
[2019-07-21] MEDS ORDERED: LACTATED RINGERS SOLUTION 1,000 ML IV SCH ×2 (11:45→13:15)
[2019-07-21] MEDS ORDERED: PROPOFOL 20 ML ONE (11:48)
[2019-07-21] MEDS ORDERED: MIDAZOLAM HCL 2 MG/2 ML SINGLE DOSE VIAL ONE (11:48)
[2019-07-21] MEDS ORDERED: LIDOCAINE HCL/PF 2% SDV 5ML VIAL ONE (11:48)
[2019-07-21] MEDS ORDERED: LIDOCAINE HCL 1%, 10 MG/ML (20ML VIAL) NR ONE (12:07)
--- NOTE | 2019-07-21 12:46 | OP ---
Operative Note - Note: Operative Date: 07/21/19 Pre-Operative Diagnosis: left 3rd digit gangrene Operation: left 3rd ray amp and bone biopsy Findings: see dictation Post-Operative Diagnosis: Same as Pre-op Surgeon: Benigno Fallon Anesthesia: Local, MAC Specimens Removed: 3rd digit path. wound culture. metatarsal - micro bone bx. metatarsal - path Estimated Blood Loss (mls): 10 Operative Report Dictated: Yes
--- NOTE | 2019-07-21 13:12 | PN ---
Progress Note, Physician History of Present Illness: stable no new issues post op d/w podiatry team cx results noted - Current Medication List Current Medications: Active Medications Acetaminophen (Tylenol -) 650 mg PO Q6H PRN PRN Reason: FEVER Last Admin: 07/19/19 15:40 Dose: 650 mg Fentanyl (Sublimaze Injection -) 50 mcg IVPUSH [id number] PRN PRN Reason: PAIN-PACU ORDER X 4 DOSES ONLY Stop: 07/22/19 11:36 Heparin Sodium (Porcine) (Heparin -) 5,000 unit SQ BID CANDELARIA Last Admin: 07/21/19 10:15 Dose: Not Given Piperacillin Sod/Tazobactam (Sod 3.375 gm/ Dextrose) 50 mls @ 100 mls/hr IVPB Q8H-IV CANDEL[facility]IA; Protocol Last Admin: 07/21/19 10:17 Dose: 100 mls/hr Sodium Chloride (Normal Saline -) 1,000 mls @ 50 mls/hr IV ASDIR CANDELARIA Last Admin: 07/21/19 01:00 Dose: 50 mls/hr Lactated Ringer's (Lactated Ringers Solution) 1,000 mls @ 125 mls/hr IV ASDIR CANDELARIA Insulin Aspart (Novolog Vial Sliding Scale -) 1 vial SQ ACHS [facility]; Protocol Last Admin: 07/21/19 11:30 Dose: Not Given Ondansetron HCl (Zofran Injection) 4 mg IVPUSH Q6H PRN PRN Reason: NAUSEA AND/OR VOMITING Stop: 07/22/19 11:36 Oxycodone HCl (Roxicodone -) 10 mg PO Q6H PRN PRN Reason: PAIN scale 6-10 Last Admin: 07/19/19 15:39 Dose: 10 mg - Objective Vital Signs: Vital Signs Temperature 98.6 F 07/21/19 10:00 Pulse Rate 76 07/21/19 10:00 Respiratory Rate 17 07/21/19 10:00 Blood Pressure 132/64 07/21/19 10:00 O2 Sat by Pulse Oximetry (%) 98 07/21/19 10:20 Constitutional: Yes: No Distress, Calm Cardiovascular: Yes: S1, S2 Respiratory: Yes: Regular, CTA Bilaterally Gastrointestinal: Yes: Normal Bowel Sounds, Soft Musculoskeletal: Yes: WNL Extremities: Yes: WNL Wound/Incision: Yes: Dressing Dry and Intact Neurological: Yes: Alert, Oriented Psychiatric: Yes: Alert, Oriented Labs: CBC, BMP 07/21/19 07:35 07/21/19 07:35 INR, PTT INR 1.16 (0.83-1.09) H 07/21/19 07:35 Assessment/Plan Problem List - Problems (1) Diabetic foot ulcer Code(s): E11.621 - TYPE 2 DIABETES MELLITUS WITH FOOT ULCER; L97.509 - NON- PRESSURE CHRONIC ULCER OTH PRT UNSP FOOT W UNSP SEVERITY (2) Uncontrolled diabetes mellitus Code(s): E11.65 - TYPE 2 DIABETES MELLITUS WITH HYPERGLYCEMIA (3) Open wound of left great toe Code(s): S91.102A - UNSP OPEN WOUND OF LEFT GREAT TOE W/O DAMAGE TO NAIL, INIT Qualifiers: Encounter type: subsequent encounter Qualified Code(s): S91.102D - Unspecified open wound of left great toe without damage to nail, subsequent encounter wound infection gangrene of the toe plan continue abx will add vanco wound care rest as per the team
[2019-07-21] MEDS ORDERED: oxyCODONE HCL 5 MG TABLET PO PRN (13:15)
--- NOTE | 2019-07-21 13:23 | HP ---
DATE OF ADMISSION: 07/18/2019 PREOPERATIVE DIAGNOSIS: Left foot 3rd digit wet gangrene. POSTOPERATIVE DIAGNOSIS: Left foot 3rd digit wet gangrene. PROCEDURE PERFORMED: Left 3rd digit ray amputation and bone biopsy. SURGEON: Benigno Fallon DPM ANESTHESIA: IV sedation with local injections. INDICATIONS: Patient is a 64-year-old male with the above-mentioned diagnosis. Patient exhausted all forms of conservative treatment and requires further surgical interventions for the conditions listed above. After careful explanation of the risks, benefits, and complications for the proposed procedure, patient signed the consent form. All questions and concerns were addressed at this time. Prior to taking the patient to the OR, n.p.o. status was verified. Preoperative antibiotics were given. OPERATIVE PROCEDURE: Patient brought to the operating room, placed on operating table in supine position. No pneumatic ankle tourniquet was utilized for this procedure. Following induction of IV sedation, a local injection of 10 mL of 1% lidocaine plain were injected to the patient's left foot in local block-type fashion without complications. After local anesthetic, left foot was prepped and draped in normal sterile manner and procedure began. Procedure number 1, left foot 3rd ray amputation. At this time, attention was directed to the patient's left foot where there was entirely grossly notable 3rd digit gangrene with proximal changes for wet gangrene area noted. At this time, utilizing a number-15 blade, an elliptical incision was made starting above the 3rd metatarsophalangeal joint, extending distally around the 3rd digit. This incision was then carried deep to expose the 3rd metatarsophalangeal joint. At this time, the remainder of the 3rd digit was disarticulated from the 3rd metatarsophalangeal joint and was passed from the operative field. This was sent for pathology. At this time, utilization of a sagittal saw, the head of the metatarsal of the 3rd digit was then resected and passed from the operating field. It is to be noted that there was gross destructive changes noted in the 3rd metatarsal head, and the bone was extremely soft which, to me, was suggestive of a consistent osteomyelitis throughout the 3rd metatarsal. This patient will likely require long-term IV antibiotics. This was also associated with a plantar ulceration on the 1st metatarsal head, but there was no notable bone exposed or purulent drainage coming from the ulcer, and so, likely there is stable osteomyelitis in the 1st metatarsophalangeal joint as well which also coordinates with long-term IV antibiotic usage that will be required. At this time, a wound culture was taken where the surgical site was removed. The 3rd metatarsal head was sectioned into 2 parts and one sent for microbiology for bone biopsy, another sent to pathology. At this time, the wound was flushed with copious amounts of normal sterile saline. The wound was then closed with 4-0 nylon in a normal sterile manner. Patient did note to have a moderate amount of good blood flow throughout the procedure; so, I am hopeful that the patient will heal up the surgical site and the plantar ulceration without complications. POSTOPERATIVE CONDITION: Patient tolerated anesthesia and procedure and was transferred to recovery room with vital signs stable and neurovascular status intact to the left foot. The patient will be followed up on floor as previously discussed with the patient. OTILIA QUEEN/[id number]
[2019-07-21] MEDS: SODIUM CHLORIDE 1,000 ML IV SCH (14:25)
[2019-07-21] MEDS: VANCOMYCIN 1,250 MG in DEXTROSE 5%-WATER - 250 ML IVPB SCH (16:16)
--- NOTE | 2019-07-21 16:22 | PN ---
Progress Note, Physician - Current Medication List Current Medications: Active Medications Acetaminophen (Tylenol -) 650 mg PO Q6H PRN PRN Reason: FEVER Heparin Sodium (Porcine) (Heparin -) 5,000 unit SQ BID CANDELARIA Vancomycin HCl 1,250 mg/ (Dextrose) 250 mls @ 166.667 mls/hr IVPB 0100,1300 CANDELARIA ; Protocol Last Admin: 07/21/19 16:16 Dose: 166.667 mls/hr Sodium Chloride (Normal Saline -) 1,000 mls @ 50 mls/hr IV ASDIR CANDELARIA Last Admin: 07/21/19 14:25 Dose: 0 mls Piperacillin Sod/Tazobactam (Sod 3.375 gm/ Dextrose) 50 mls @ 100 mls/hr IVPB Q8H-IV CANDELARIA; Protocol Insulin Aspart (Novolog Vial Sliding Scale -) 1 vial SQ ACHS CANDEL[facility]IA; Protocol Last Admin: 07/21/19 15:09 Dose: 6 units Ondansetron HCl (Zofran Injection) 4 mg IVPUSH Q6H PRN PRN Reason: NAUSEA AND/OR VOMITING Stop: 07/22/19 11:36 Oxycodone HCl (Roxicodone -) 10 mg PO Q6H PRN PRN Reason: PAIN scale 6-10 - Objective Vital Signs: Vital Signs Temperature 98.2 F 07/21/19 14:40 Pulse Rate 76 07/21/19 14:40 Respiratory Rate 17 07/21/19 14:40 Blood Pressure 145/76 07/21/19 14:40 O2 Sat by Pulse Oximetry (%) 97 07/21/19 14:40 Constitutional: Yes: No Distress HENT: Yes: Atraumatic Neck: Yes: Supple Cardiovascular: Yes: Regular Rate and Rhythm Respiratory: Yes: CTA Bilaterally Gastrointestinal: Yes: Normal Bowel Sounds Extremities: Yes: Other (L foot in dressing) Edema: No Peripheral Pulses WNL: Yes Neurological: Yes: Alert, Oriented Labs: CBC, BMP 07/21/19 07:35 07/21/19 07:35 INR, PTT INR 1.16 (0.83-1.09) H 07/21/19 07:35 Problem List - Problems (1) Diabetic foot ulcer Assessment/Plan: on iv abx wound care Code(s): E11.621 - TYPE 2 DIABETES MELLITUS WITH FOOT ULCER; L97.509 - NON- PRESSURE CHRONIC ULCER OTH PRT UNSP FOOT W UNSP SEVERITY (2) Uncontrolled diabetes mellitus Assessment/Plan: insulin , bgms Code(s): E11.65 - TYPE 2 DIABETES MELLITUS WITH HYPERGLYCEMIA (3) Open wound of left great toe Code(s): S91.102A - UNSP OPEN WOUND OF LEFT GREAT TOE W/O DAMAGE TO NAIL, INIT Qualifiers: Encounter type: subsequent encounter Qualified Code(s): S91.102D - Unspecified open wound of left great toe without damage to nail, subsequent encounter Assessment/Plan picc line in am ABX PER ID
[2019-07-22] MEDS ORDERED: PIPERACILLIN/TAZOBACTAM 3.375 GM VIAL IVPB ONE ×3 (00:02→16:39)
[2019-07-22] MEDS ORDERED: DEXTROSE 5%-WATER - 50 ML IVPB ONE ×3 (00:02→16:39)
[2019-07-22] MEDS ORDERED: PT OWN MED DRAWER 7, Y5N ONE ×2 (00:04→12:18)
[2019-07-22] MEDS: PIPERACILLIN/TAZOB 3.375 GM 3.375 GM in DEXTROSE 5%-WATER - 50 ML IVPB SCH ×3 (02:30→17:09)
[2019-07-22] MEDS: VANCOMYCIN 1,250 MG in DEXTROSE 5%-WATER - 250 ML IVPB SCH ×2 (02:33→14:08)
[2019-07-22] MEDS: INSULIN SLIDING SCALE (NOVOLOG) 1 VIAL SQ SCH ×4 (06:47→21:35)
[2019-07-22] MEDS: HEPARIN NA (PORCINE) 5,000 UNITS/ML 1ML VIAL SQ SCH ×2 (09:50→21:35)
--- NOTE | 2019-07-22 10:53 | PN ---
Progress Note, Physician History of Present Illness: stable no new issues post op - Current Medication List Current Medications: Active Medications Acetaminophen (Tylenol -) 650 mg PO Q6H PRN PRN Reason: FEVER Heparin Sodium (Porcine) (Heparin -) 5,000 unit SQ BID CANDELARIA Last Admin: 07/22/19 09:50 Dose: 5,000 unit Vancomycin HCl 1,250 mg/ (Dextrose) 250 mls @ 166.667 mls/hr IVPB 0100,1300 CANDELARIA ; Protocol Last Admin: 07/22/19 02:33 Dose: 166.667 mls/hr Sodium Chloride (Normal Saline -) 1,000 mls @ 50 mls/hr IV ASDIR CANDELARIA Last Admin: 07/21/19 14:25 Dose: 0 mls Piperacillin Sod/Tazobactam (Sod 3.375 gm/ Dextrose) 50 mls @ 100 mls/hr IVPB Q8H-IV CANDELARIA; Protocol Last Admin: 07/22/19 09:50 Dose: 100 mls/hr Insulin Aspart (Novolog Vial Sliding Scale -) 1 vial SQ ACHS [facility]; Protocol Last Admin: 07/22/19 06:47 Dose: 10 units Ondansetron HCl (Zofran Injection) 4 mg IVPUSH Q6H PRN PRN Reason: NAUSEA AND/OR VOMITING Stop: 07/22/19 11:36 Oxycodone HCl (Roxicodone -) 10 mg PO Q6H PRN PRN Reason: PAIN scale 6-10 - Objective Vital Signs: Vital Signs Temperature 99 F 07/22/19 10:00 Pulse Rate 91 H 07/22/19 10:00 Respiratory Rate 18 07/22/19 10:00 Blood Pressure 137/64 07/22/19 10:00 O2 Sat by Pulse Oximetry (%) 98 07/22/19 08:56 Constitutional: Yes: No Distress, Calm Cardiovascular: Yes: S1, S2 Respiratory: Yes: Regular, CTA Bilaterally Gastrointestinal: Yes: Normal Bowel Sounds, Soft Musculoskeletal: Yes: Other Extremities: Yes: Other Wound/Incision: Yes: Dressing Dry and Intact Neurological: Yes: Alert, Oriented Psychiatric: Yes: Alert, Oriented Labs: CBC, BMP 07/21/19 07:35 07/21/19 07:35 INR, PTT INR 1.16 (0.83-1.09) H 07/21/19 07:35 Assessment/Plan Problem List - Problems (1) Diabetic foot ulcer Code(s): E11.621 - TYPE 2 DIABETES MELLITUS WITH FOOT ULCER; L97.509 - NON- PRESSURE CHRONIC ULCER OTH PRT UNSP FOOT W UNSP SEVERITY (2) Uncontrolled diabetes mellitus Code(s): E11.65 - TYPE 2 DIABETES MELLITUS WITH HYPERGLYCEMIA (3) Open wound of left great toe Code(s): S91.102A - UNSP OPEN WOUND OF LEFT GREAT TOE W/O DAMAGE TO NAIL, INIT Qualifiers: Encounter type: subsequent encounter Qualified Code(s): S91.102D - Unspecified open wound of left great toe without damage to nail, subsequent encounter wound infection gangrene of the toe plan continue abx will need ot for 4-6 weeks wound care rest as per the team
--- NOTE | 2019-07-22 11:01 | DS ---
Physical Examination Vital Signs: Vital Signs Temperature 99 F 07/22/19 10:00 Pulse Rate 91 H 07/22/19 10:00 Respiratory Rate 18 07/22/19 10:00 Blood Pressure 137/64 07/22/19 10:00 O2 Sat by Pulse Oximetry (%) 98 07/22/19 08:56 Constitutional: Yes: No Distress HENT: Yes: Atraumatic Neck: Yes: Supple Cardiovascular: Yes: Regular Rate and Rhythm Respiratory: Yes: CTA Bilaterally Gastrointestinal: Yes: Normal Bowel Sounds Extremities: Yes: Other (l FOOT IN DRESSING) Neurological: Yes: Alert, Oriented Labs: CBC, BMP 07/21/19 07:35 07/21/19 07:35 Discharge Summary Problems reviewed: Yes Reason For Visit: DIABETIC FOOT ULCER Current Active Problems Diabetic foot ulcer (Acute) Osteomyelitis (Acute) Toe necrosis (Acute) Uncontrolled diabetes mellitus (Acute) - Instructions Diet, Activity, Other Instructions: FOLLOW UP WOUND CARE CLINIC continue abx...DR DUCKWORTH will need It for 4-6 weeks wound care Referrals: Jasvir Solano MD [Primary Care Provider] - - Home Medications Comprehensive Discharge Medication List: Ambulatory Orders Collagenase Clostridium Hist. [Santyl] 1 applic TP DAILY #90 oint...g. 07/27/17 Becaplermin [Regranex] 15 gm TP DAILY #1 gel..gram. 08/07/17 Piperacillin/Tazob 3.375 gm [Zosyn -] 3.375 gm IVPB Q8H-IV #30 vial 07/22/19 Vancomycin 1,250 mg IVPB 0100,1300 #14 vial 07/22/19 plan continue abx will need It for 4-6 weeks wound care PER DR DUCKWORTH
[2019-07-22] MEDS ORDERED: INSULIN (NOVOLOG) ASPART 100 UNITS/ML 10ML VIAL ONE (12:33)
[2019-07-22] MEDS: SODIUM CHLORIDE 1,000 ML IV SCH (14:08)
--- NOTE | 2019-07-22 16:59 | PN ---
Progress Note (short form) - Note Progress Note: Podiatry Pleasant 64 year old diabetic male presents with left foot diabetic ulcer and gangrenous changes third digit. Is now s/p left 3rd digit amputation. Stable. Doing well. Discharge today? PMHx: IDDM, HTN, s/p multiple amputations bilateral feet Meds: noted ALL: NKMA THAIS: L foot: pedal pulses palpable 2/4, TG wnl. left lantar hallux ulceration stable , no signs of cellulitis, no erythema, gross hallux edema, 3rd digit amp site intact with sutures, no dehisence, some bleeding noted L foot XR: destructive process distal phalanx third digit Imp: 64 year old diabetic male with left sub-first metatarsal diabetic ulcer, gangrene with osteomyelitis third digit; s/p amputation Evaluated and reviewed dressing changed for f/u next thursday inthe wound care center stable surgically from pod standpoint detention IV abx per ID. will f/u as outpatient.
--- NOTE | 2019-07-22 20:49 | PN ---
Progress Note, Physician - Current Medication List Current Medications: Active Medications Acetaminophen (Tylenol -) 650 mg PO Q6H PRN PRN Reason: FEVER Heparin Sodium (Porcine) (Heparin -) 5,000 unit SQ BID CANDELARIA Last Admin: 07/22/19 09:50 Dose: 5,000 unit Vancomycin HCl 1,250 mg/ (Dextrose) 250 mls @ 166.667 mls/hr IVPB 0100,1300 CANDELARIA ; Protocol Last Admin: 07/22/19 14:08 Dose: 166.667 mls/hr Sodium Chloride (Normal Saline -) 1,000 mls @ 50 mls/hr IV ASDIR CANDELARIA Last Admin: 07/22/19 14:08 Dose: 50 mls/hr Piperacillin Sod/Tazobactam (Sod 3.375 gm/ Dextrose) 50 mls @ 100 mls/hr IVPB Q8H-IV CANDELARIA; Protocol Last Admin: 07/22/19 17:09 Dose: 100 mls/hr Insulin Aspart (Novolog Vial Sliding Scale -) 1 vial SQ ACHS [facility]; Protocol Last Admin: 07/22/19 17:10 Dose: 14 units Oxycodone HCl (Roxicodone -) 10 mg PO Q6H PRN PRN Reason: PAIN scale 6-10 - Objective Vital Signs: Vital Signs Temperature 98.6 F 07/22/19 18:54 Pulse Rate 82 07/22/19 18:54 Respiratory Rate 18 07/22/19 18:54 Blood Pressure 149/76 07/22/19 18:54 O2 Sat by Pulse Oximetry (%) 98 07/22/19 08:56 Constitutional: Yes: No Distress HENT: Yes: Atraumatic Neck: Yes: Supple Cardiovascular: Yes: Regular Rate and Rhythm Respiratory: Yes: CTA Bilaterally Gastrointestinal: Yes: Normal Bowel Sounds Extremities: Yes: Other (L foot in dressing) Labs: CBC, BMP 07/21/19 07:35 07/21/19 07:35 INR, PTT INR 1.16 (0.83-1.09) H 07/21/19 07:35 Problem List - Problems (1) Diabetic foot ulcer Assessment/Plan: on iv abx wound care Code(s): E11.621 - TYPE 2 DIABETES MELLITUS WITH FOOT ULCER; L97.509 - NON- PRESSURE CHRONIC ULCER OTH PRT UNSP FOOT W UNSP SEVERITY (2) Uncontrolled diabetes mellitus Code(s): E11.65 - TYPE 2 DIABETES MELLITUS WITH HYPERGLYCEMIA (3) Open wound of left great toe Code(s): S91.102A - UNSP OPEN WOUND OF LEFT GREAT TOE W/O DAMAGE TO NAIL, INIT Qualifiers: Encounter type: subsequent encounter Qualified Code(s): S91.102D - Unspecified open wound of left great toe without damage to nail, subsequent encounter (4) Osteomyelitis Assessment/Plan: iv abx s/p toe surgery Code(s): M86.9 - OSTEOMYELITIS, UNSPECIFIED (5) Toe necrosis Code(s): I96 - GANGRENE, NOT ELSEWHERE CLASSIFIED
[2019-07-23] MEDS: VANCOMYCIN 1,250 MG in DEXTROSE 5%-WATER - 250 ML IVPB SCH ×2 (01:05→16:00)
[2019-07-23] MEDS ORDERED: PT OWN MED DRAWER 7, Y5N ONE (01:53)
[2019-07-23] MEDS ORDERED: DEXTROSE 5%-WATER - 50 ML IVPB ONE ×2 (01:54→11:11)
[2019-07-23] MEDS ORDERED: PIPERACILLIN/TAZOBACTAM 3.375 GM VIAL IVPB ONE ×2 (01:54→11:11)
[2019-07-23] MEDS: PIPERACILLIN/TAZOB 3.375 GM 3.375 GM in DEXTROSE 5%-WATER - 50 ML IVPB SCH ×2 (02:05→11:13)
[2019-07-23] MEDS: INSULIN SLIDING SCALE (NOVOLOG) 1 VIAL SQ SCH ×4 (06:34→21:27)
[2019-07-23] MEDS: HEPARIN NA (PORCINE) 5,000 UNITS/ML 1ML VIAL SQ SCH ×2 (11:13→21:27)
[2019-07-23] MEDS: SODIUM CHLORIDE 1,000 ML IV SCH (13:39)
--- NOTE | 2019-07-23 14:46 | PN ---
Progress Note, Physician History of Present Illness: Pt states he feels well and denies pain in Left foot s/p Lt 3rd toe amputation POD#2 - Current Medication List Current Medications: Active Medications Acetaminophen (Tylenol -) 650 mg PO Q6H PRN PRN Reason: FEVER Heparin Sodium (Porcine) (Heparin -) 5,000 unit SQ BID CANDELARIA Last Admin: 07/23/19 11:13 Dose: 5,000 unit Vancomycin HCl 1,250 mg/ (Dextrose) 250 mls @ 166.667 mls/hr IVPB 0100,1300 CANDELARIA ; Protocol Last Admin: 07/23/19 01:05 Dose: 166.667 mls/hr Sodium Chloride (Normal Saline -) 1,000 mls @ 50 mls/hr IV ASDIR CANDELARIA Last Admin: 07/23/19 13:39 Dose: Not Given Piperacillin Sod/Tazobactam (Sod 3.375 gm/ Dextrose) 50 mls @ 100 mls/hr IVPB Q8H-IV CANDELARIA; Protocol Last Admin: 07/23/19 11:13 Dose: 100 mls/hr Insulin Aspart (Novolog Vial Sliding Scale -) 1 vial SQ ACHS [facility]; Protocol Last Admin: 07/23/19 13:38 Dose: 14 units Oxycodone HCl (Roxicodone -) 10 mg PO Q6H PRN PRN Reason: PAIN scale 6-10 - Objective Vital Signs: Vital Signs Temperature 97.9 F 07/23/19 14:35 Pulse Rate 91 H 07/23/19 14:35 Respiratory Rate 20 07/23/19 14:35 Blood Pressure 144/75 07/23/19 14:35 O2 Sat by Pulse Oximetry (%) 98 07/23/19 09:00 Constitutional: Yes: No Distress, Calm Cardiovascular: Yes: Regular Rate and Rhythm Respiratory: Yes: Regular Gastrointestinal: Yes: Normal Bowel Sounds, Soft Genitourinary: Yes: WNL Extremities: Yes: Amputation (Lt 3rd toe) Integumentary: Yes: WNL Wound/Incision: Yes: Other (Lt 3rd toe amputation, +stitches intact, clean) Neurological: Yes: Alert, Oriented Labs: CBC, BMP 07/21/19 07:35 07/21/19 07:35 INR, PTT INR 1.16 (0.83-1.09) H 07/21/19 07:35 Microbiology 07/21/19 12:17 Foot - Left Gram Stain - Final 07/21/19 12:17 Foot - Left Wound Culture - Preliminary Enterobacter Aerogenes Mr S Aureus Beta Hemolytic Strep Pseudomonas Species 07/21/19 12:45 Bone Gram Stain - Final 07/21/19 12:45 Bone Tissue Culture - Preliminary Gram Negative Tuan Pseudomonas Aeruginosa Presumptive Mrsa (Pbp2a Pos) Beta Hemolytic Strep 07/21/19 12:45 Bone Anaerobic Culture - Final NO ANAEROBES WERE ISOLATED 07/18/19 16:23 Blood - Peripheral Venous Blood Culture - Preliminary NO GROWTH OBTAINED AFTER 96 HOURS, INCUBATION TO CONTINUE FOR 1 DAYS. 07/18/19 16:35 Blood - Peripheral Venous Blood Culture - Preliminary NO GROWTH OBTAINED AFTER 96 HOURS, INCUBATION TO CONTINUE FOR 1 DAYS. 07/18/19 03:50 Toe - Left Third Gram Stain - Final 07/18/19 03:50 Toe - Left Third Wound Culture - Final Enterobacter Aerogenes Mr S Aureus - ....Imaging X-ray: Report Reviewed MRI: Report Reviewed Problem List - Problems (1) Diabetic foot ulcer Code(s): E11.621 - TYPE 2 DIABETES MELLITUS WITH FOOT ULCER; L97.509 - NON- PRESSURE CHRONIC ULCER OTH PRT UNSP FOOT W UNSP SEVERITY (2) Osteomyelitis Code(s): M86.9 - OSTEOMYELITIS, UNSPECIFIED (3) Toe necrosis Code(s): I96 - GANGRENE, NOT ELSEWHERE CLASSIFIED (4) Uncontrolled diabetes mellitus Code(s): E11.65 - TYPE 2 DIABETES MELLITUS WITH HYPERGLYCEMIA Assessment/Plan Lt 3rd toe gangrene/OM s/p amputation POD#2 DM -- culture results noted, f/u bone biopsy results -- continue Zosyn/Vancomycin -- Vancomycin trough level ordered -- continue wound care Podiatry following
[2019-07-23] MEDS ORDERED: PIPERACILLIN/TAZOBACTAM 4.5 GM VIAL IVPB ONE ×2 (17:38→17:40)
[2019-07-23] MEDS ORDERED: DEXTROSE 5%-WATER 100 ML IVPB ONE (17:39)
[2019-07-23] MEDS: PIPERACILLIN/TAZOB 4.5 GM 4.5 GM in DEXTROSE 5%-WATER 100 ML IVPB SCH (18:04)
--- NOTE | 2019-07-23 20:06 | PN ---
Progress Note, Physician - Current Medication List Current Medications: Active Medications Acetaminophen (Tylenol -) 650 mg PO Q6H PRN PRN Reason: FEVER Heparin Sodium (Porcine) (Heparin -) 5,000 unit SQ BID [facility] Last Admin: 07/23/19 11:13 Dose: 5,000 unit Vancomycin HCl 1,250 mg/ (Dextrose) 250 mls @ 166.667 mls/hr IVPB 0100,1300 [facility] ; Protocol Last Admin: 07/23/19 16:00 Dose: 166.667 mls/hr Sodium Chloride (Normal Saline -) 1,000 mls @ 50 mls/hr IV ASDIR CANDELARIA Last Admin: 07/23/19 13:39 Dose: Not Given Piperacillin Sod/Tazobactam (Sod 4.5 gm/ Dextrose) 100 mls @ 200 mls/hr IVPB Q8H-IV [facility]; Protocol Last Admin: 07/23/19 18:04 Dose: 200 mls/hr Insulin Aspart (Novolog Vial Sliding Scale -) 1 vial SQ ACHS [facility]; Protocol Last Admin: 07/23/19 17:29 Dose: 14 unit Oxycodone HCl (Roxicodone -) 10 mg PO Q6H PRN PRN Reason: PAIN scale 6-10 - Objective Vital Signs: Vital Signs Temperature 98.7 F 07/23/19 18:40 Pulse Rate 91 H 07/23/19 18:40 Respiratory Rate 20 07/23/19 18:40 Blood Pressure 147/68 07/23/19 18:40 O2 Sat by Pulse Oximetry (%) 98 07/23/19 09:00 Constitutional: Yes: No Distress HENT: Yes: Atraumatic Neck: Yes: Supple Cardiovascular: Yes: Regular Rate and Rhythm Respiratory: Yes: CTA Bilaterally Gastrointestinal: Yes: Normal Bowel Sounds Extremities: Yes: Other (L foot in dressing) Edema: No Neurological: Yes: Alert, Oriented Labs: CBC, BMP 07/21/19 07:35 07/21/19 07:35 INR, PTT INR 1.16 (0.83-1.09) H 07/21/19 07:35 Problem List - Problems (1) Diabetic foot ulcer Assessment/Plan: on iv abx wound care s/p surgery Code(s): E11.621 - TYPE 2 DIABETES MELLITUS WITH FOOT ULCER; L97.509 - NON- PRESSURE CHRONIC ULCER OTH PRT UNSP FOOT W UNSP SEVERITY (2) Uncontrolled diabetes mellitus Assessment/Plan: insulin , bgms Code(s): E11.65 - TYPE 2 DIABETES MELLITUS WITH HYPERGLYCEMIA (3) Open wound of left great toe Code(s): S91.102A - UNSP OPEN WOUND OF LEFT GREAT TOE W/O DAMAGE TO NAIL, INIT Qualifiers: Encounter type: subsequent encounter Qualified Code(s): S91.102D - Unspecified open wound of left great toe without damage to nail, subsequent encounter
[2019-07-24] MEDS ORDERED: DEXTROSE 5%-WATER 100 ML IVPB ONE ×3 (00:06→17:23)
[2019-07-24] MEDS ORDERED: PIPERACILLIN/TAZOBACTAM 4.5 GM VIAL IVPB ONE ×3 (00:06→17:23)
[2019-07-24] MEDS: PIPERACILLIN/TAZOB 4.5 GM 4.5 GM in DEXTROSE 5%-WATER 100 ML IVPB SCH ×3 (01:04→17:23)
[2019-07-24] MEDS: VANCOMYCIN 1,250 MG in DEXTROSE 5%-WATER - 250 ML IVPB SCH ×2 (02:45→16:28)
[2019-07-24] MEDS: INSULIN SLIDING SCALE (NOVOLOG) 1 VIAL SQ SCH ×4 (06:05→21:24)
[2019-07-24 08:34] LABS: BASO % 0.6 % (0-2.0); EOS % 1.4 % (0-4.5); HEMATOCRIT 36.8 % (35.4-49); HEMOGLOBIN 12.4 GM/dL (11.7-16.9); MCH 29.6 pg (25.7-33.7); MCHC 33.8 g/dl (32.0-35.9); MEAN CELL VOLUME 87.5 fl (80-96); MEAN PLT VOLUME 8.6 fl (7.5-11.1); MONO % 6.3 % (3.8-10.2); NEUT % 81.7 % (42.8-82.8); PLATELET COUNT 309 K/MM3 (134-434); RDW 12.8 % (11.9-15.9); WHITE BLOOD COUNT 10.9 K/mm3 (4.0-10.0)
[2019-07-24 08:53] LABS: CALCIUM 9.4 mg/dL (8.5-10.1); CREATININE 2.2 mg/dL (0.55-1.3); POTASSIUM 4.1 mmol/L (3.5-5.1)
[2019-07-24] MEDS: HEPARIN NA (PORCINE) 5,000 UNITS/ML 1ML VIAL SQ SCH ×2 (11:35→21:24)
--- NOTE | 2019-07-24 13:38 | PN ---
Progress Note, Physician - Current Medication List Current Medications: Active Medications Acetaminophen (Tylenol -) 650 mg PO Q6H PRN PRN Reason: FEVER Heparin Sodium (Porcine) (Heparin -) 5,000 unit SQ BID [facility]DEL[facility]IA Last Admin: 07/24/19 11:35 Dose: 5,000 unit Vancomycin HCl 1,250 mg/ (Dextrose) 250 mls @ 166.667 mls/hr IVPB 0100,1300 [facility] ; Protocol Last Admin: 07/24/19 02:45 Dose: 166.667 mls/hr Sodium Chloride (Normal Saline -) 1,000 mls @ 50 mls/hr IV ASDIR CANDELARIA Last Admin: 07/23/19 13:39 Dose: Not Given Piperacillin Sod/Tazobactam (Sod 4.5 gm/ Dextrose) 100 mls @ 200 mls/hr IVPB Q8H-IV [facility]; Protocol Last Admin: 07/24/19 11:35 Dose: 200 mls/hr Insulin Aspart (Novolog Vial Sliding Scale -) 1 vial SQ ACHS [facility]; Protocol Last Admin: 07/24/19 12:46 Dose: 14 unit - Objective Vital Signs: Vital Signs Temperature 98.5 F 07/23/19 22:00 Pulse Rate 88 07/23/19 22:00 Respiratory Rate 20 07/24/19 08:54 Blood Pressure 140/66 07/23/19 22:00 O2 Sat by Pulse Oximetry (%) 98 07/24/19 08:54 Constitutional: Yes: No Distress HENT: Yes: Atraumatic Cardiovascular: Yes: Regular Rate and Rhythm Respiratory: Yes: CTA Bilaterally Gastrointestinal: Yes: Normal Bowel Sounds Extremities: Yes: Other (L foot in dressing) Neurological: Yes: Alert, Oriented Labs: CBC, BMP 07/24/19 07:55 07/24/19 07:55 INR, PTT INR 1.16 (0.83-1.09) H 07/21/19 07:35 Problem List - Problems (1) Diabetic foot ulcer Assessment/Plan: on iv abx wound care s/p surgery Code(s): E11.621 - TYPE 2 DIABETES MELLITUS WITH FOOT ULCER; L97.509 - NON- PRESSURE CHRONIC ULCER OTH PRT UNSP FOOT W UNSP SEVERITY (2) Uncontrolled diabetes mellitus Assessment/Plan: insulin , bgms endo consult Code(s): E11.65 - TYPE 2 DIABETES MELLITUS WITH HYPERGLYCEMIA (3) Open wound of left great toe Code(s): S91.102A - UNSP OPEN WOUND OF LEFT GREAT TOE W/O DAMAGE TO NAIL, INIT Qualifiers: Encounter type: subsequent encounter Qualified Code(s): S91.102D - Unspecified open wound of left great toe without damage to nail, subsequent encounter
[2019-07-24] MEDS ORDERED: INSULIN (LEVEMIR) 100 UNITS/ML UNITS SQ STA (14:38)
[2019-07-24] MEDS: SODIUM CHLORIDE 1,000 ML IV SCH (16:28)
[2019-07-24] MEDS ORDERED: INSULIN (LEVEMIR) 100 UNITS/ML UNITS SQ ONE (17:28)
--- NOTE | 2019-07-24 18:01 | PN ---
Progress Note, Physician History of Present Illness: Pt is alert, afebrile, denies pain in Lt foot. Creatinine elevated 2.2. Vancomycin level noted. - Current Medication List Current Medications: Active Medications Acetaminophen (Tylenol -) 650 mg PO Q6H PRN PRN Reason: FEVER Heparin Sodium (Porcine) (Heparin -) 5,000 unit SQ BID CANDELARIA Last Admin: 07/24/19 11:35 Dose: 5,000 unit Sodium Chloride (Normal Saline -) 1,000 mls @ 50 mls/hr IV ASDIR CANDELARIA Last Admin: 07/24/19 16:28 Dose: Not Given Piperacillin Sod/Tazobactam (Sod 4.5 gm/ Dextrose) 100 mls @ 200 mls/hr IVPB Q8H-IV [facility]; Protocol Last Admin: 07/24/19 17:23 Dose: Not Given Insulin Aspart (Novolog Vial Sliding Scale -) 1 vial SQ ACHS [facility]; Protocol Last Admin: 07/24/19 17:26 Dose: 14 unit - Objective Vital Signs: Vital Signs Temperature 98.5 F 07/23/19 22:00 Pulse Rate 88 07/23/19 22:00 Respiratory Rate 20 07/24/19 08:54 Blood Pressure 140/66 07/23/19 22:00 O2 Sat by Pulse Oximetry (%) 98 07/24/19 08:54 Constitutional: Yes: No Distress, Calm Cardiovascular: Yes: Regular Rate and Rhythm Respiratory: Yes: Regular Gastrointestinal: Yes: Normal Bowel Sounds, Soft Genitourinary: Yes: WNL Extremities: Yes: Amputation (Lt 3rd toe) Wound/Incision: Yes: Other (Lt 3rd toe amp site intact, no drainage, no tenderness) Neurological: Yes: Alert Labs: CBC, BMP 07/24/19 07:55 07/24/19 07:55 INR, PTT INR 1.16 (0.83-1.09) H 07/21/19 07:35 Microbiology 07/21/19 12:45 Bone Gram Stain - Final 07/21/19 12:45 Bone Tissue Culture - Preliminary Enterobacter Aerogenes Pseudomonas Aeruginosa Presumptive Mrsa (Pbp2a Pos) Beta Hemolytic Strep 07/21/19 12:45 Bone Anaerobic Culture - Final NO ANAEROBES WERE ISOLATED 07/21/19 12:17 Foot - Left Gram Stain - Final 07/21/19 12:17 Foot - Left Wound Culture - Preliminary Enterobacter Aerogenes Mr S Aureus Beta Hemolytic Strep Pseudomonas Species 07/18/19 16:35 Blood - Peripheral Venous Blood Culture - Final NO GROWTH AFTER 5 DAYS INCUBATION 07/18/19 16:23 Blood - Peripheral Venous Blood Culture - Final NO GROWTH AFTER 5 DAYS INCUBATION 07/18/19 03:50 Toe - Left Third Gram Stain - Final 07/18/19 03:50 Toe - Left Third Wound Culture - Final Enterobacter Aerogenes Mr S Aureus Problem List - Problems (1) Diabetic foot ulcer Code(s): E11.621 - TYPE 2 DIABETES MELLITUS WITH FOOT ULCER; L97.509 - NON- PRESSURE CHRONIC ULCER OTH PRT UNSP FOOT W UNSP SEVERITY (2) Osteomyelitis Code(s): M86.9 - OSTEOMYELITIS, UNSPECIFIED (3) Toe necrosis Code(s): I96 - GANGRENE, NOT ELSEWHERE CLASSIFIED (4) Uncontrolled diabetes mellitus Code(s): E11.65 - TYPE 2 DIABETES MELLITUS WITH HYPERGLYCEMIA Assessment/Plan Lt 3rd toe gangrene/OM s/p amputation POD#3 DM Acute Kidney Injury -- Bone cultures: +MRSA/Pseudomonas/Strep/Enterobacter -- Creatinine elevated, Vancomycin trough level 29.2 : hold Vancomycin , check Vancomycin random level tomorrow -- Will adjust dose of Zosyn -- suggest IV fluid hydration, monitor renal function closely -- repeat labs in a.m. -- monitor wound site for healing -- will need several weeks of IV antibiotics
[2019-07-24] MEDS ORDERED: DEXTROSE 5%-WATER - 50 ML IVPB ONE (18:45)
[2019-07-24] MEDS ORDERED: PIPERACILLIN/TAZOBACTAM 3.375 GM VIAL IVPB ONE (18:45)
[2019-07-24] MEDS: PIPERACILLIN/TAZOB 3.375 GM 3.375 GM in DEXTROSE 5%-WATER - 50 ML IVPB SCH (19:09)
[2019-07-25] MEDS ORDERED: DEXTROSE 5%-WATER - 50 ML IVPB ONE ×3 (00:51→16:46)
[2019-07-25] MEDS ORDERED: PIPERACILLIN/TAZOBACTAM 3.375 GM VIAL IVPB ONE ×3 (00:51→16:46)
[2019-07-25] MEDS: PIPERACILLIN/TAZOB 3.375 GM 3.375 GM in DEXTROSE 5%-WATER - 50 ML IVPB SCH ×2 (01:35→09:47)
[2019-07-25] MEDS: INSULIN SLIDING SCALE (NOVOLOG) 1 VIAL SQ SCH ×4 (06:12→21:53)
[2019-07-25] MEDS ORDERED: PT OWN MED DRAWER 7, Y5N ONE (08:28)
[2019-07-25] MEDS ORDERED: INSULIN (LEVEMIR) 100 UNITS/ML UNITS SQ ONE (10:45)
--- NOTE | 2019-07-25 12:05 | CONSULT ---
Consult Consult Specialty:: Endocrinology Referred by:: Dr Lezama Reason for Consultation:: Hyperglycemia - History of Present Illness Chief Complaint: Foot infection History of Present Illness: This is a 64-year-old male with history of T2DM for about 10 years, not taking antidiabetic meds for last 6 months who presented to ED with worsening left toe wound. Patient states due to the neuropathy he is unable to feel discomfort but states over the past month the skin has darkened and now has open wounds to the left third toe. Patient states left second toe amputation [address] Gonzales and seen approximately 1 year ago. Patient states has been seen by the viscose department worker on [facility], last visit being 2 months ago. Patient denies fever, chills or radiation of pain. Pt hasn't been to his PCP for the last 6 months and hasn't taken any antidiabetic meds for the same periods. Has not been doing BGM at home for same period. Doesn't remember what meds he was on. Denies polyuria, polydipsia. No visual symptoms. Has numbness of feet left > rt. - History Source History Provided By: Patient, Medical Record - Past Medical History Endocrine: Yes: Diabetes Mellitus - Past Surgical History Past Surgical History: Yes: Amputation (ampuitation of the left 2nd toe 5 years ago, and amputation of the right 1st and 2nd toes 2 years ago) - Alcohol/Substance Use Hx Alcohol Use: No - Smoking History Smoking history: Never smoked Have you smoked in the past 12 months: No Home Medications - Allergies Allergies/Adverse Reactions: Allergies Allergy/AdvReac Type Severity Reaction Status Date / Time No Known Allergies Allergy Verified 07/18/19 13:52 - Home Medications Home Medications: Ambulatory Orders Collagenase Clostridium Hist. [Santyl] 1 applic TP DAILY #90 oint...g. 07/27/17 Becaplermin [Regranex] 15 gm TP DAILY #1 gel..gram. 08/07/17 Piperacillin/Tazob 3.375 gm [Zosyn -] 3.375 gm IVPB Q8H-IV #30 vial 07/22/19 Vancomycin 1,250 mg IVPB 0100,1300 #14 vial 07/22/19 Family Medical History Other Family History: No family h/o DM Review of Systems - Review of Systems Constitutional: reports: No Symptoms Eyes: reports: No Symptoms HENT: reports: No Symptoms Neck: reports: No Symptoms Cardiovascular: reports: No Symptoms Respiratory: reports: No Symptoms Gastrointestinal: reports: No Symptoms Genitourinary: reports: No Symptoms Musculoskeletal: reports: No Symptoms Neurological: reports: No Symptoms Endocrine: reports: No Symptoms Physical Exam Vital Signs: Vital Signs Temperature 98.5 F 07/23/19 22:00 Pulse Rate 88 07/23/19 22:00 Respiratory Rate 20 07/24/19 08:54 Blood Pressure 140/66 07/23/19 22:00 O2 Sat by Pulse Oximetry (%) 98 07/24/19 21:00 Constitutional: Yes: No Distress, Calm Eyes: Yes: Conjunctiva Clear, EOM Intact HENT: Yes: Atraumatic, Normocephalic Neck: Yes: Supple, Trachea Midline Cardiovascular: Yes: Regular Rate and Rhythm Respiratory: Yes: Regular, CTA Bilaterally Gastrointestinal: Yes: Normal Bowel Sounds, Soft Musculoskeletal: Yes: WNL Extremities: Yes: WNL, Other (Left foot dressing. Rt foot 1st and 2nd toe amputation) Edema: No Labs: CBC, BMP 07/24/19 07:55 07/24/19 07:55 Assessment/Plan Lt 3rd toe gangrene/OM s/p amputation T2DM: uncontrolled sec to noncompliance with meds Acute Kidney Injury Local wound care IV Abx Monitor renal function Diet exercise discussed Diabetes education done. Increase Levemir 20 units daily Increase Novolog SS coverage Nutrition consult CMP now
[2019-07-25] MEDS ORDERED: INSULIN (NOVOLOG) ASPART 100 UNITS/ML 10ML VIAL ONE (12:08)
[2019-07-25] MEDS: HEPARIN NA (PORCINE) 5,000 UNITS/ML 1ML VIAL SQ SCH ×2 (12:10→21:50)
--- NOTE | 2019-07-25 13:35 | PN ---
Progress Note, Physician History of Present Illness: stable no new issues post op - Current Medication List Current Medications: Active Medications Acetaminophen (Tylenol -) 650 mg PO Q6H PRN PRN Reason: FEVER Heparin Sodium (Porcine) (Heparin -) 5,000 unit SQ BID [facility]DELARIA Last Admin: 07/25/19 12:10 Dose: 5,000 unit Sodium Chloride (Normal Saline -) 1,000 mls @ 50 mls/hr IV ASDIR CANDELARIA Last Admin: 07/24/19 16:28 Dose: Not Given Piperacillin Sod/Tazobactam (Sod 3.375 gm/ Dextrose) 50 mls @ 100 mls/hr IVPB Q8H-IV [facility]; Protocol Last Admin: 07/25/19 09:47 Dose: 100 mls/hr Insulin Aspart (Novolog Vial Sliding Scale -) 1 vial SQ TIDAC [facility]; Protocol Insulin Aspart (Novolog Vial Sliding Scale -) 1 vial SQ HS [facility]; Protocol Insulin Detemir (Levemir Vial) 20 units SQ HS [facility]DELARIA - Objective Vital Signs: Vital Signs Temperature 98.5 F 07/23/19 22:00 Pulse Rate 88 07/23/19 22:00 Respiratory Rate 20 07/24/19 08:54 Blood Pressure 140/66 07/23/19 22:00 O2 Sat by Pulse Oximetry (%) 98 07/24/19 21:00 Constitutional: Yes: No Distress, Calm Cardiovascular: Yes: S1, S2 Respiratory: Yes: Regular, CTA Bilaterally Gastrointestinal: Yes: Normal Bowel Sounds, Soft Musculoskeletal: Yes: WNL Extremities: Yes: Other Wound/Incision: Yes: Dressing Dry and Intact Neurological: Yes: Alert, Oriented Psychiatric: Yes: Alert, Oriented Labs: CBC, BMP 07/24/19 07:55 07/24/19 07:55 INR, PTT INR 1.16 (0.83-1.09) H 07/21/19 07:35 Assessment/Plan Problem List - Problems (1) Diabetic foot ulcer Code(s): E11.621 - TYPE 2 DIABETES MELLITUS WITH FOOT ULCER; L97.509 - NON- PRESSURE CHRONIC ULCER OTH PRT UNSP FOOT W UNSP SEVERITY (2) Uncontrolled diabetes mellitus Code(s): E11.65 - TYPE 2 DIABETES MELLITUS WITH HYPERGLYCEMIA (3) Open wound of left great toe Code(s): S91.102A - UNSP OPEN WOUND OF LEFT GREAT TOE W/O DAMAGE TO NAIL, INIT Qualifiers: Encounter type: subsequent encounter Qualified Code(s): S91.102D - Unspecified open wound of left great toe without damage to nail, subsequent encounter wound infection gangrene of the toe plan continue abx will need ot for 4-6 weeks wound care rest as per the team creatinine noted off of vanco as levels high patient will need readjustment of his meds ordered stat labs will see what is the creatinine
--- NOTE | 2019-07-25 14:28 | CONSULT ---
Consult Consult Specialty:: Nephrology Reason for Consultation:: VARUN - History of Present Illness Chief Complaint: left toe wound History of Present Illness: Pt is a 64 year old male with pmhx of DM who presents to the ER initially for an infected left toe wound. He did have a debridement. He is getting abx. I was called to evaluate him today as he was found to have elevated creatinine yesterday. He denies shortness of breath. He denies dysuria. He denies nsaid use. He denies lower ext edema. He denies hematuria or dysuria. - History Source History Provided By: Patient, Medical Record - Past Medical History Endocrine: Yes: Diabetes Mellitus - Past Surgical History Past Surgical History: Yes: Amputation (ampuitation of the left 2nd toe 5 years ago, and amputation of the right 1st and 2nd toes 2 years ago) - Alcohol/Substance Use Hx Alcohol Use: No - Smoking History Smoking history: Never smoked Have you smoked in the past 12 months: No Home Medications - Allergies Allergies/Adverse Reactions: Allergies Allergy/AdvReac Type Severity Reaction Status Date / Time No Known Allergies Allergy Verified 07/18/19 13:52 - Home Medications Home Medications: Ambulatory Orders Collagenase Clostridium Hist. [Santyl] 1 applic TP DAILY #90 oint...g. 07/27/17 Becaplermin [Regranex] 15 gm TP DAILY #1 gel..gram. 08/07/17 Piperacillin/Tazob 3.375 gm [Zosyn -] 3.375 gm IVPB Q8H-IV #30 vial 07/22/19 Vancomycin 1,250 mg IVPB 0100,1300 #14 vial 07/22/19 Family Medical History Family History: Denies Review of Systems - Review of Systems Constitutional: reports: No Symptoms Eyes: reports: No Symptoms HENT: reports: No Symptoms Neck: reports: No Symptoms Cardiovascular: reports: No Symptoms Respiratory: reports: No Symptoms Gastrointestinal: reports: No Symptoms Genitourinary: reports: No Symptoms Musculoskeletal: reports: No Symptoms Integumentary: reports: No Symptoms Neurological: reports: No Symptoms Endocrine: reports: No Symptoms Hematology/Lymphatic: reports: No Symptoms Psychiatric: reports: No Symptoms Physical Exam Vital Signs: Vital Signs Temperature 98.5 F 07/23/19 22:00 Pulse Rate 88 07/23/19 22:00 Respiratory Rate 20 07/24/19 08:54 Blood Pressure 140/66 07/23/19 22:00 O2 Sat by Pulse Oximetry (%) 98 07/24/19 21:00 Constitutional: Yes: Calm Eyes: Yes: Conjunctiva Clear HENT: Yes: Atraumatic Neck: Yes: Supple Cardiovascular: Yes: S1, S2 Respiratory: Yes: CTA Bilaterally Gastrointestinal: Yes: Soft Renal/: Yes: WNL Edema: No Wound/Incision: Yes: Dressing Dry and Intact Neurological: Yes: Oriented Psychiatric: Yes: Oriented Labs: CBC, BMP 07/24/19 07:55 07/24/19 07:55 Laboratory Tests 07/18/19 07/19/19 07/21/19 16:23 06:53 07:35 WBC 6.3 Hgb 12.1 Sodium Potassium Creatinine 1.0 0.6 Vancomycin Pre-Dose 07/21/19 07/24/19 07/24/19 07:35 01:00 07:55 WBC 10.9 H Hgb 12.4 Sodium Potassium Creatinine 0.8 Vancomycin Pre-Dose 29.2 H 07/24/19 07:55 WBC Hgb Sodium 132 L Potassium 4.1 Creatinine 2.2 H Vancomycin Pre-Dose Problem List - Problems (1) VARUN (acute kidney injury) Code(s): N17.9 - ACUTE KIDNEY FAILURE, UNSPECIFIED (2) Diabetic foot ulcer Code(s): E11.621 - TYPE 2 DIABETES MELLITUS WITH FOOT ULCER; L97.509 - NON- PRESSURE CHRONIC ULCER OTH PRT UNSP FOOT W UNSP SEVERITY (3) Osteomyelitis Code(s): M86.9 - OSTEOMYELITIS, UNSPECIFIED Assessment/Plan Current Medications Generic Name Dose Route Start Last Admin Trade Name Freq PRN Reason Stop Dose Admin Acetaminophen 650 mg 07/21/19 13:15 Tylenol - PO Q6H PRN FEVER Heparin Sodium (Porcine) 5,000 unit 07/21/19 22:00 07/25/19 12:10 Heparin - SQ 5,000 unit BID CANDELARIA Administration Sodium Chloride 1,000 mls @ 50 mls/hr 07/21/19 13:15 07/24/19 16:28 Normal Saline - IV Not Given ASDIR CANDELARIA Piperacillin Sod/Tazobactam 50 mls @ 100 mls/hr 07/25/19 14:20 Sod 2.25 gm/ Dextrose IVPB Q8H-IV [facility] Protocol Insulin Aspart 1 vial 07/25/19 16:30 Novolog Vial Sliding Scale - SQ TIDAC [facility] Protocol Insulin Aspart 1 vial 07/25/19 22:00 Novolog Vial Sliding Scale - SQ HS [facility] Protocol Insulin Detemir 20 units 07/25/19 22:00 Levemir Vial SQ HS [facility] Impression 1. VARUN 2. DFU 3. DM Plan - repeat bmp - check ua, urine lytes and quantitative associate - check kidney and bladder us to r/o obstruction - send urine eos - avoid nsaids - cont fluids
--- NOTE | 2019-07-25 15:01 | PN ---
Progress Note, Physician - Current Medication List Current Medications: Active Medications Acetaminophen (Tylenol -) 650 mg PO Q6H PRN PRN Reason: FEVER Heparin Sodium (Porcine) (Heparin -) 5,000 unit SQ BID CANDELARIA Last Admin: 07/25/19 12:10 Dose: 5,000 unit Sodium Chloride (Normal Saline -) 1,000 mls @ 50 mls/hr IV ASDIR CANDELARIA Last Admin: 07/24/19 16:28 Dose: Not Given Piperacillin Sod/Tazobactam (Sod 2.25 gm/ Dextrose) 50 mls @ 100 mls/hr IVPB Q8H-IV [facility]; Protocol Insulin Aspart (Novolog Vial Sliding Scale -) 1 vial SQ TIDAC [facility]; Protocol Insulin Aspart (Novolog Vial Sliding Scale -) 1 vial SQ HS [facility]; Protocol Insulin Detemir (Levemir Vial) 20 units SQ HS [facility] - Objective Vital Signs: Vital Signs Temperature 98.2 F 07/25/19 14:33 Pulse Rate 82 07/25/19 14:33 Respiratory Rate 20 07/25/19 14:33 Blood Pressure 151/75 07/25/19 14:33 O2 Sat by Pulse Oximetry (%) 98 07/24/19 21:00 Constitutional: Yes: No Distress HENT: Yes: Atraumatic Neck: Yes: Supple Cardiovascular: Yes: Regular Rate and Rhythm Respiratory: Yes: CTA Bilaterally Gastrointestinal: Yes: Normal Bowel Sounds Extremities: Yes: Other ( l foot in dressing) Neurological: Yes: Alert, Oriented Labs: CBC, BMP 07/24/19 07:55 07/24/19 07:55 INR, PTT INR 1.16 (0.83-1.09) H 07/21/19 07:35 Problem List - Problems (1) Diabetic foot ulcer Assessment/Plan: on iv abx wound care s/p surgery Code(s): E11.621 - TYPE 2 DIABETES MELLITUS WITH FOOT ULCER; L97.509 - NON- PRESSURE CHRONIC ULCER OTH PRT UNSP FOOT W UNSP SEVERITY (2) Uncontrolled diabetes mellitus Assessment/Plan: insulin , bgms endo consult Code(s): E11.65 - TYPE 2 DIABETES MELLITUS WITH HYPERGLYCEMIA (3) Open wound of left great toe Code(s): S91.102A - UNSP OPEN WOUND OF LEFT GREAT TOE W/O DAMAGE TO NAIL, INIT Qualifiers: Encounter type: subsequent encounter Qualified Code(s): S91.102D - Unspecified open wound of left great toe without damage to nail, subsequent encounter
[2019-07-25 15:15] LABS: HEMATOCRIT 35.1 % (35.4-49); HEMOGLOBIN 11.9 GM/dL (11.7-16.9); MCH 29.4 pg (25.7-33.7); MCHC 33.9 g/dl (32.0-35.9); MEAN CELL VOLUME 86.5 fl (80-96); MEAN PLT VOLUME 8.8 fl (7.5-11.1); PLATELET COUNT 333 K/MM3 (134-434); RBC 4.05 M/mm3 (4.00-5.60); RDW 12.7 % (11.9-15.9); WHITE BLOOD COUNT 8.3 K/mm3 (4.0-10.0)
[2019-07-25 15:50] LABS: ALBUMIN 2.8 g/dl (3.4-5.0); BILIRUBIN,TOTAL 0.5 mg/dL (0.2-1); BLOOD UREA NITROGEN 23.3 mg/dL (7-18); CALCIUM 9.3 mg/dL (8.5-10.1); CREATININE 2.2 mg/dL (0.55-1.3); TOT PROT 7.3 g/dl (6.4-8.2)
[2019-07-25] MEDS: PIPERACILLIN/TAZOB 3.375 GM 2.25 GM in DEXTROSE 5%-WATER - 50 ML IVPB SCH (17:22)
[2019-07-25] MEDS: SODIUM CHLORIDE 1,000 ML IV SCH (17:26)
[2019-07-25 17:44] LABS: URINE APPEARANCE CLEAR; URINE BILIRUBIN NEGATIVE (NEGATIVE); URINE COLOR YELLOW; URINE GLUCOSE (UA) 3+ (NEGATIVE); URINE KETONE NEGATIVE (NEGATIVE); URINE LEUK ESTERASE NEGATIVE (NEGATIVE); URINE NITRITE NEGATIVE (NEGATIVE); URINE PROTEIN NEGATIVE (NEGATIVE); URINE UROBILINOGEN 0.2 mg/dL (0.2-1.0)
[2019-07-25] MEDS: amLODIPine BESYLATE 5 MG TABLET (FP) PO SCH (18:35)
[2019-07-25] MEDS: INSULIN (LEVEMIR) 100 UNITS/ML UNITS SQ SCH (21:50)
[2019-07-25] MEDS: ACETAMINOPHEN 325 MG TABLET (FP) PO PRN (21:52)
[2019-07-26] MEDS: PIPERACILLIN/TAZOB 3.375 GM 2.25 GM in DEXTROSE 5%-WATER - 50 ML IVPB SCH ×2 (03:00→10:47)
[2019-07-26] MEDS ORDERED: PIPERACILLIN/TAZOBACTAM 3.375 GM VIAL IVPB ONE ×2 (04:23→10:45)
[2019-07-26] MEDS ORDERED: DEXTROSE 5%-WATER - 50 ML IVPB ONE ×3 (04:23→17:26)
[2019-07-26] MEDS: INSULIN SLIDING SCALE (NOVOLOG) 1 VIAL SQ SCH ×4 (06:48→22:27)
[2019-07-26 08:48] LABS: CHOLESTEROL 126 mg/dL (50-200); HDL CHOLESTEROL 43 mg/dL (40-60); LDL CHOLESTEROL (ONLY SJRH) 56 mg/dL (5-100); TRIGLYCERIDES 141 mg/dL (0-150)
[2019-07-26] MEDS: HEPARIN NA (PORCINE) 5,000 UNITS/ML 1ML VIAL SQ SCH ×2 (10:47→22:52)
[2019-07-26] MEDS: amLODIPine BESYLATE 5 MG TABLET (FP) PO SCH (10:48)
--- NOTE | 2019-07-26 11:55 | PN ---
Progress Note, Physician History of Present Illness: stable no new issues - Current Medication List Current Medications: Active Medications Acetaminophen (Tylenol -) 650 mg PO Q6H PRN PRN Reason: FEVER Last Admin: 07/25/19 21:52 Dose: 650 mg Amlodipine Besylate (Norvasc -) 5 mg PO DAILY [facility] Last Admin: 07/26/19 10:48 Dose: 5 mg Heparin Sodium (Porcine) (Heparin -) 5,000 unit SQ BID [facility] Last Admin: 07/26/19 10:47 Dose: 5,000 unit Sodium Chloride (Normal Saline -) 1,000 mls @ 50 mls/hr IV ASDIR CANDELARIA Last Admin: 07/25/19 17:26 Dose: 50 mls/hr Piperacillin Sod/Tazobactam (Sod 2.25 gm/ Dextrose) 50 mls @ 100 mls/hr IVPB Q8H-IV [facility]; Protocol Last Admin: 07/26/19 10:47 Dose: 100 mls/hr Insulin Aspart (Novolog Vial Sliding Scale -) 1 vial SQ TIDAC [facility]; Protocol Last Admin: 07/26/19 06:48 Dose: 6 units Insulin Aspart (Novolog Vial Sliding Scale -) 1 vial SQ HS [facility]; Protocol Last Admin: 07/25/19 21:53 Dose: 4 units Insulin Detemir (Levemir Vial) 20 units SQ HS [facility] Last Admin: 07/25/19 21:50 Dose: 20 units - Objective Vital Signs: Vital Signs Temperature 98.0 F 07/26/19 10:00 Pulse Rate 72 07/26/19 10:00 Respiratory Rate 18 07/26/19 10:00 Blood Pressure 141/70 07/26/19 10:00 O2 Sat by Pulse Oximetry (%) 99 07/25/19 21:00 Constitutional: Yes: No Distress, Calm Cardiovascular: Yes: S1, S2 Respiratory: Yes: Regular, CTA Bilaterally Gastrointestinal: Yes: Normal Bowel Sounds, Soft Musculoskeletal: Yes: WNL Extremities: Yes: Other Wound/Incision: Yes: Dressing Dry and Intact Neurological: Yes: Alert, Oriented Psychiatric: Yes: Alert, Oriented Labs: CBC, BMP 07/25/19 14:40 07/25/19 14:40 INR, PTT INR 1.16 (0.83-1.09) H 07/21/19 07:35 Assessment/Plan Problem List - Problems (1) Diabetic foot ulcer Code(s): E11.621 - TYPE 2 DIABETES MELLITUS WITH FOOT ULCER; L97.509 - NON- PRESSURE CHRONIC ULCER OTH PRT UNSP FOOT W UNSP SEVERITY (2) Uncontrolled diabetes mellitus Code(s): E11.65 - TYPE 2 DIABETES MELLITUS WITH HYPERGLYCEMIA (3) Open wound of left great toe Code(s): S91.102A - UNSP OPEN WOUND OF LEFT GREAT TOE W/O DAMAGE TO NAIL, INIT Qualifiers: Encounter type: subsequent encounter Qualified Code(s): S91.102D - Unspecified open wound of left great toe without damage to nail, subsequent encounter wound infection gangrene of the toe plan continue abx will need ot for 4-6 weeks wound care rest as per the team await for the results
--- NOTE | 2019-07-26 12:15 | PATH ---
Surgical Pathology Report Patient Name: ALAN CHRISTIANSON [facility]. Rec. #: [id number] /Age/Gender: 1955 (Age: 64) / M Account: [id number] Location: [facility] MED/SURG Taken: 07/21/2019 Received: 07/21/2019 Reported: 07/26/2019 Physicians: Benigno Fallon DPM Specimen(s) Received A: LEFT FOOT 3RD DIGIT B: LEFT FOOT BONE BIOPSY Clinical History Diabetic ulcer, diabetic neuropathy Final Diagnosis A. LEFT FOOT THIRD DIGIT, AMPUTATION: AMPUTATED TOE SHOWING GANGRENOUS NECROSIS AND ABSCESS FORMATION, FOCALLY INVOLVING SKIN AND SOFT TISSUE MARGIN. BONE WITH ACUTE OSTEOMYELITIS. BONE MARGIN SHOWING CHRONIC OSTEOMYELITIS. ACUTE OSTEOMYELITIS NOT IDENTIFIED AT THE MARGIN. B. LEFT FOOT METATARSAL BONE, EXCISION: BONE WITH CHRONIC OSTEOMYELITIS. Electronically Signed Sis Acuña M.D. Gross Description A. Received in formalin labeled "left foot third digit," is a 4.5 x 2.3 x 1.7 cm toe amputation. The entire epidermal surface displays a rodriguez-black, gangrenous lesion involving the skin and soft tissue margin as well as the underlying bone. [employer] Information Systems Technician sections are submitted in 3 cassettes as follows: 1-lesion with underlying bone, following decalcification; 2-bone margin, following decalcification; 3-skin and soft tissue margin. B. Received in formalin labeled "left foot bone biopsy metatarsal bone," is a 1.8 x 1.4 x 0.6 cm romero-yellow, irregular portion of bone. The specimen is serially sectioned and entirely submitted in one cassette, following decalcification. /07/22/201907/22/2019
[2019-07-26 13:47] LABS: BILIRUBIN,TOTAL 0.8 mg/dL (0.2-1); BLOOD UREA NITROGEN 24.4 mg/dL (7-18); CALCIUM 9.7 mg/dL (8.5-10.1); CREATININE 2.1 mg/dL (0.55-1.3); POTASSIUM 4.4 mmol/L (3.5-5.1); TOT PROT 7.6 g/dl (6.4-8.2)
--- NOTE | 2019-07-26 14:12 | PN ---
Progress Note (short form) - Note Progress Note: Denies any complaints Blood sugar improving Vital Signs Period Temp Pulse Resp BP Sys/Jackson Pulse Ox Last 24 Hr 98.0 F-98.6 F 72-82 18-20 141-162/70-81 99 PE: aoX3 Neck: Supple, No jvd Lungs: CTA CVs: s1S2 Abd: Benign Ext: Left foot dressing Rt foot amputation 1st and 2nd toes Neuro: No focal deficit CMP Sodium 134 mmol/L (136-145) L 07/26/19 12:30 Potassium 4.4 mmol/L (3.5-5.1) 07/26/19 12:30 Chloride 100 mmol/L (98-107) 07/26/19 12:30 Carbon Dioxide 28 mmol/L (21-32) 07/26/19 12:30 Anion Gap 6 MMOL/L (8-16) L 07/26/19 12:30 BUN 24.4 mg/dL (7-18) H 07/26/19 12:30 Creatinine 2.1 mg/dL (0.55-1.3) H 07/26/19 12:30 Est GFR (CKD-EPI)AfAm 37.96 07/26/19 12:30 Est GFR (CKD-EPI)NonAf 32.75 07/26/19 12:30 POC Glucometer 195 UNITS (80-120) 07/26/19 12:27 Random Glucose 199 mg/dL (74-106) H 07/26/19 12:30 Hemoglobin A1c % 13.9 % (4.2-6.3) H 07/26/19 06:00 Lactic Acid 1.7 mmol/L (0.4-2.0) 07/18/19 16:23 Calcium 9.7 mg/dL (8.5-10.1) 07/26/19 12:30 Total Bilirubin 0.8 mg/dL (0.2-1) 07/26/19 12:30 AST 14 U/L (15-37) L 07/26/19 12:30 ALT 18 U/L (13-61) 07/26/19 12:30 Alkaline Phosphatase 69 U/L (45-117) 07/26/19 12:30 Total Protein 7.6 g/dl (6.4-8.2) 07/26/19 12:30 Albumin 3.0 g/dl (3.4-5.0) L 07/26/19 12:30 Triglycerides 141 mg/dL (0-150) 07/26/19 06:00 Cholesterol 126 mg/dL (50-200) 07/26/19 06:00 Total LDL Cholesterol 56 mg/dL (5-100) 07/26/19 06:00 HDL Cholesterol 43 mg/dL (40-60) 07/26/19 06:00 Beta-Hydroxybutyrate 12.7 mg/dL (0.2-2.8) H 07/18/19 16:23 Current Medications Generic Name Dose Route Start Last Admin Trade Name Freq PRN Reason Stop Dose Admin Acetaminophen 650 mg 07/21/19 13:15 07/25/19 21:52 Tylenol - PO 650 mg Q6H PRN Administration FEVER Amlodipine Besylate 5 mg 07/25/19 18:15 07/26/19 10:48 Norvasc - PO 5 mg DAILY [facility] Administration Heparin Sodium (Porcine) 5,000 unit 07/21/19 22:00 07/26/19 10:47 Heparin - SQ 5,000 unit BID [facility] Administration Sodium Chloride 1,000 mls @ 50 mls/hr 07/21/19 13:15 07/25/19 17:26 Normal Saline - IV 50 mls/hr ASDIR [facility] Administration Piperacillin Sod/Tazobactam 50 mls @ 100 mls/hr 07/26/19 12:23 Sod 2.25 gm/ Dextrose IVPB Q8H-IV [facility] Protocol Insulin Aspart 1 vial 07/25/19 16:30 07/26/19 12:28 Novolog Vial Sliding Scale - SQ 6 units TIDAC [facility] Administration Protocol Insulin Aspart 1 vial 07/25/19 22:00 07/25/19 21:53 Novolog Vial Sliding Scale - SQ 4 units HS [facility] Administration Protocol Insulin Detemir 20 units 07/25/19 22:00 07/25/19 21:50 Levemir Vial SQ 20 units HS [facility] Administration AP: Lt 3rd toe gangrene/OM s/p amputation T2DM: uncontrolled sec to noncompliance with meds Acute Kidney Injury Local wound care IV Abx Monitor renal function Diet exercise discussed Diabetes education done. Levemir 20 units daily Novolog SS coverage
--- NOTE | 2019-07-26 15:55 | PN ---
Progress Note (short form) - Note Progress Note: Podiatry F/U: Seen/evaluated at bedside NAD. Pain controlled, denies F/V/N/C/SOB/CP. Afebrile. S/p Left third digit amputation for gangrenous changes. Doing well, PICC line inserted yesterday. THAIS: L foot: pedal pulses palpable, TG wnl. SUtures well coapted at third ray, no dehiscence noted. No purulent drainage, no fluctuance, no streaking cellulitis , no signs of active infection. Minimal tenderness to palpation. No gangrenous changes. Left sub-first metatarsal diabetic ulcer fibrogranular base , regular borders, no probing to bone, no purulence, no fluctuance, no streaking cellulitis. OR Cx: MRSA, enterobacter, strep, pseudomonas OR Path: (+) chronic osteomyelitis Imp: 64 year old diabetic male s/p left third digit amputation 1. IV abx per infectious disease 2. Will need 6 weeks IV abx for treatment of osteomyelitis 3. Partial weightbearing left heel with surgical shoe 4. Will need home nursing services, bactroban to the left foot incision site and left foot ulcer 3x/week, followed by dry sterile dressing. 5. Patient would be a strong candidate for hyperbaric oxygen therapy, which can hyperoxygenate and perfuse tissues with hopes to expedite wound healing. 6. Pod stable for discharge. Will f/u with me in 1 week in wound healing center. [phone]. Max Hassan DPM
[2019-07-26] MEDS ORDERED: PIPERACILLIN/TAZOBACTAM 2.25 GM VIAL IVPB ONE (17:26)
--- NOTE | 2019-07-26 17:41 | PN ---
Progress Note, Physician - Current Medication List Current Medications: Active Medications Acetaminophen (Tylenol -) 650 mg PO Q6H PRN PRN Reason: FEVER Last Admin: 07/25/19 21:52 Dose: 650 mg Amlodipine Besylate (Norvasc -) 5 mg PO DAILY [facility] Last Admin: 07/26/19 10:48 Dose: 5 mg Heparin Sodium (Porcine) (Heparin -) 5,000 unit SQ BID [facility] Last Admin: 07/26/19 10:47 Dose: 5,000 unit Sodium Chloride (Normal Saline -) 1,000 mls @ 50 mls/hr IV ASDIR [facility] Last Admin: 07/25/19 17:26 Dose: 50 mls/hr Piperacillin Sod/Tazobactam (Sod 2.25 gm/ Dextrose) 50 mls @ 100 mls/hr IVPB Q8H-IV [facility]; Protocol Insulin Aspart (Novolog Vial Sliding Scale -) 1 vial SQ TIDAC [facility]; Protocol Last Admin: 07/26/19 12:28 Dose: 6 units Insulin Aspart (Novolog Vial Sliding Scale -) 1 vial SQ HS [facility]; Protocol Last Admin: 07/25/19 21:53 Dose: 4 units Insulin Detemir (Levemir Vial) 20 units SQ HS [facility] Last Admin: 07/25/19 21:50 Dose: 20 units - Objective Vital Signs: Vital Signs Temperature 98.4 F 07/26/19 14:25 Pulse Rate 93 H 07/26/19 14:25 Respiratory Rate 20 07/26/19 14:25 Blood Pressure 142/65 07/26/19 14:25 O2 Sat by Pulse Oximetry (%) 99 07/25/19 21:00 Constitutional: Yes: No Distress HENT: Yes: Atraumatic Neck: Yes: Supple Cardiovascular: Yes: Regular Rate and Rhythm Respiratory: Yes: CTA Bilaterally Gastrointestinal: Yes: Normal Bowel Sounds Extremities: Yes: WNL Edema: No Neurological: Yes: Alert, Oriented Labs: CBC, BMP 07/25/19 14:40 07/26/19 12:30 INR, PTT INR 1.16 (0.83-1.09) H 07/21/19 07:35 Problem List - Problems (1) Diabetic foot ulcer Assessment/Plan: on iv abx wound care s/p surgery Code(s): E11.621 - TYPE 2 DIABETES MELLITUS WITH FOOT ULCER; L97.509 - NON- PRESSURE CHRONIC ULCER OTH PRT UNSP FOOT W UNSP SEVERITY (2) Uncontrolled diabetes mellitus Assessment/Plan: insulin , bgms endo consult Code(s): E11.65 - TYPE 2 DIABETES MELLITUS WITH HYPERGLYCEMIA (3) Open wound of left great toe Code(s): S91.102A - UNSP OPEN WOUND OF LEFT GREAT TOE W/O DAMAGE TO NAIL, INIT Qualifiers: Encounter type: subsequent encounter Qualified Code(s): S91.102D - Unspecified open wound of left great toe without damage to nail, subsequent encounter
[2019-07-26] MEDS: PIPERACILLIN/TAZOB 2.25 GM 2.25 GM in DEXTROSE 5%-WATER - 50 ML IVPB SCH (17:43)
[2019-07-26] MEDS: SODIUM CHLORIDE 1,000 ML IV SCH (17:54)
--- NOTE | 2019-07-26 18:35 | PN ---
Progress Note, Physician History of Present Illness: Pt seen and examined at bedside. He is awake and alert. He denies shortness of breath. - Current Medication List Current Medications: Active Medications Acetaminophen (Tylenol -) 650 mg PO Q6H PRN PRN Reason: FEVER Last Admin: 07/25/19 21:52 Dose: 650 mg Amlodipine Besylate (Norvasc -) 5 mg PO DAILY [facility] Last Admin: 07/26/19 10:48 Dose: 5 mg Heparin Sodium (Porcine) (Heparin -) 5,000 unit SQ BID [facility] Last Admin: 07/26/19 10:47 Dose: 5,000 unit Sodium Chloride (Normal Saline -) 1,000 mls @ 50 mls/hr IV ASDIR [facility] Last Admin: 07/26/19 17:54 Dose: Not Given Piperacillin Sod/Tazobactam (Sod 2.25 gm/ Dextrose) 50 mls @ 100 mls/hr IVPB Q8H-IV [facility]; Protocol Last Admin: 07/26/19 17:43 Dose: 100 mls/hr Insulin Aspart (Novolog Vial Sliding Scale -) 1 vial SQ TIDAC [facility]; Protocol Last Admin: 07/26/19 17:54 Dose: 10 units Insulin Aspart (Novolog Vial Sliding Scale -) 1 vial SQ HS [facility]; Protocol Last Admin: 07/25/19 21:53 Dose: 4 units Insulin Detemir (Levemir Vial) 20 units SQ HS [facility] Last Admin: 07/25/19 21:50 Dose: 20 units - Objective Vital Signs: Vital Signs Temperature 98.4 F 07/26/19 14:25 Pulse Rate 93 H 07/26/19 14:25 Respiratory Rate 20 07/26/19 14:25 Blood Pressure 142/65 07/26/19 14:25 O2 Sat by Pulse Oximetry (%) 99 07/25/19 21:00 Constitutional: Yes: Calm Eyes: Yes: Conjunctiva Clear HENT: Yes: Atraumatic Neck: Yes: Supple Cardiovascular: Yes: S1, S2 Respiratory: Yes: CTA Bilaterally Gastrointestinal: Yes: Soft Genitourinary: Yes: WNL Musculoskeletal: Yes: WNL Edema: No Wound/Incision: Yes: Dressing Dry and Intact Neurological: Yes: Oriented Psychiatric: Yes: Oriented Labs: CBC, BMP 07/25/19 14:40 07/26/19 12:30 INR, PTT INR 1.16 (0.83-1.09) H 07/21/19 07:35 Problem List - Problems (1) VARUN (acute kidney injury) Code(s): N17.9 - ACUTE KIDNEY FAILURE, UNSPECIFIED (2) Diabetic foot ulcer Code(s): E11.621 - TYPE 2 DIABETES MELLITUS WITH FOOT ULCER; L97.509 - NON- PRESSURE CHRONIC ULCER OTH PRT UNSP FOOT W UNSP SEVERITY (3) Osteomyelitis Code(s): M86.9 - OSTEOMYELITIS, UNSPECIFIED Assessment/Plan Current Medications Generic Name Dose Route Start Last Admin Trade Name Freq PRN Reason Stop Dose Admin Acetaminophen 650 mg 07/21/19 13:15 07/25/19 21:52 Tylenol - PO 650 mg Q6H PRN Administration FEVER Amlodipine Besylate 5 mg 07/25/19 18:15 07/26/19 10:48 Norvasc - PO 5 mg DAILY [facility] Administration Heparin Sodium (Porcine) 5,000 unit 07/21/19 22:00 07/26/19 10:47 Heparin - SQ 5,000 unit BID [facility] Administration Sodium Chloride 1,000 mls @ 50 mls/hr 07/21/19 13:15 07/26/19 17:54 Normal Saline - IV Not Given ASDIR [facility]DEL[facility]IA Piperacillin Sod/Tazobactam 50 mls @ 100 mls/hr 07/26/19 12:23 07/26/19 17:43 Sod 2.25 gm/ Dextrose IVPB 100 mls/hr Q8H-IV [facility] Administration Protocol Insulin Aspart 1 vial 07/25/19 16:30 07/26/19 17:54 Novolog Vial Sliding Scale - SQ 10 units TIDAC [facility] Administration Protocol Insulin Aspart 1 vial 07/25/19 22:00 07/25/19 21:53 Novolog Vial Sliding Scale - SQ 4 units HS [facility] Administration Protocol Insulin Detemir 20 units 07/25/19 22:00 07/25/19 21:50 Levemir Vial SQ 20 units HS [facility] Administration Laboratory Tests 07/25/19 07/25/19 15:10 15:10 Urine Protein Negative Urine Blood Negative Urine Eosinophils Pending Impression 1. VARUN 2. DFU 3. DM Plan - cont fluids - repeat labs in am - ua neg for blood or protein - check kidney and bladder us to r/o obstruction - follow urine eos - avoid nsaids
[2019-07-26] MEDS: INSULIN (LEVEMIR) 100 UNITS/ML UNITS SQ SCH (22:27)
[2019-07-27] MEDS ORDERED: DEXTROSE 5%-WATER - 50 ML IVPB ONE ×3 (02:13→18:03)
[2019-07-27] MEDS ORDERED: PIPERACILLIN/TAZOBACTAM 2.25 GM VIAL IVPB ONE ×3 (02:13→18:02)
[2019-07-27] MEDS: PIPERACILLIN/TAZOB 2.25 GM 2.25 GM in DEXTROSE 5%-WATER - 50 ML IVPB SCH ×3 (02:14→18:18)
[2019-07-27] MEDS: SODIUM CHLORIDE 1,000 ML IV SCH (06:28)
[2019-07-27] MEDS: INSULIN SLIDING SCALE (NOVOLOG) 1 VIAL SQ SCH ×4 (06:28→22:27)
[2019-07-27 08:44] LABS: ALBUMIN 2.6 g/dl (3.4-5.0); BILIRUBIN,TOTAL 0.4 mg/dL (0.2-1); BLOOD UREA NITROGEN 22.2 mg/dL (7-18); CALCIUM 9.3 mg/dL (8.5-10.1); CREATININE 2.2 mg/dL (0.55-1.3)
[2019-07-27 09:09] LABS: HEMATOCRIT 35.8 % (35.4-49); HEMOGLOBIN 12.2 GM/dL (11.7-16.9); MCH 29.3 pg (25.7-33.7); MCHC 33.9 g/dl (32.0-35.9); MEAN CELL VOLUME 86.2 fl (80-96); MEAN PLT VOLUME 8.9 fl (7.5-11.1); PLATELET COUNT 311 K/MM3 (134-434); RBC 4.16 M/mm3 (4.00-5.60); RDW 12.8 % (11.9-15.9); WHITE BLOOD COUNT 6.9 K/mm3 (4.0-10.0)
--- NOTE | 2019-07-27 09:14 | PN ---
Progress Note (short form) - Note Progress Note: Denies any complaints Blood sugar 200s No Hypos Vital Signs Period Temp Pulse Resp BP Sys/Jackson Pulse Ox Last 24 Hr 98 F-98.5 F 72-93 16-20 141-156/65-79 99 PE: AOX3 Neck: Supple, No jvd Lungs: CTA CVs: s1S2 Abd: Benign Ext: Left foot dressing Rt foot amputation 1st and 2nd toes Neuro: No focal deficit CMP Sodium 139 mmol/L (136-145) 07/27/19 06:58 Potassium 4.0 mmol/L (3.5-5.1) 07/27/19 06:58 Chloride 103 mmol/L (98-107) 07/27/19 06:58 Carbon Dioxide 30 mmol/L (21-32) 07/27/19 06:58 Anion Gap 6 MMOL/L (8-16) L 07/27/19 06:58 BUN 22.2 mg/dL (7-18) H 07/27/19 06:58 Creatinine 2.2 mg/dL (0.55-1.3) H 07/27/19 06:58 Est GFR (CKD-EPI)AfAm 35.88 07/27/19 06:58 Est GFR (CKD-EPI)NonAf 30.96 07/27/19 06:58 POC Glucometer 198 UNITS (80-120) 07/27/19 06:26 Random Glucose 180 mg/dL (74-106) H 07/27/19 06:58 Hemoglobin A1c % 13.9 % (4.2-6.3) H 07/26/19 06:00 Lactic Acid 1.7 mmol/L (0.4-2.0) 07/18/19 16:23 Calcium 9.3 mg/dL (8.5-10.1) 07/27/19 06:58 Total Bilirubin 0.4 mg/dL (0.2-1) 07/27/19 06:58 AST 11 U/L (15-37) L 07/27/19 06:58 ALT 16 U/L (13-61) 07/27/19 06:58 Alkaline Phosphatase 62 U/L (45-117) 07/27/19 06:58 Total Protein 7.0 g/dl (6.4-8.2) 07/27/19 06:58 Albumin 2.6 g/dl (3.4-5.0) L 07/27/19 06:58 Triglycerides 141 mg/dL (0-150) 07/26/19 06:00 Cholesterol 126 mg/dL (50-200) 07/26/19 06:00 Total LDL Cholesterol 56 mg/dL (5-100) 07/26/19 06:00 HDL Cholesterol 43 mg/dL (40-60) 07/26/19 06:00 Beta-Hydroxybutyrate 12.7 mg/dL (0.2-2.8) H 07/18/19 16:23 Current Medications Generic Name Dose Route Start Last Admin Trade Name Freq PRN Reason Stop Dose Admin Acetaminophen 650 mg 07/21/19 13:15 07/25/19 21:52 Tylenol - PO 650 mg Q6H PRN Administration FEVER Amlodipine Besylate 5 mg 07/25/19 18:15 07/26/19 10:48 Norvasc - PO 5 mg DAILY [facility] Administration Heparin Sodium (Porcine) 5,000 unit 07/21/19 22:00 07/26/19 22:52 Heparin - SQ 5,000 unit BID [facility] Administration Sodium Chloride 1,000 mls @ 50 mls/hr 07/21/19 13:15 07/27/19 06:28 Normal Saline - IV 50 mls/hr ASDIR [facility] Administration Piperacillin Sod/Tazobactam 50 mls @ 100 mls/hr 07/26/19 12:23 07/27/19 02:14 Sod 2.25 gm/ Dextrose IVPB 100 mls/hr Q8H-IV [facility] Administration Protocol Insulin Aspart 1 vial 07/25/19 16:30 07/27/19 06:28 Novolog Vial Sliding Scale - SQ 6 units TIDAC [facility] Administration Protocol Insulin Aspart 1 vial 07/25/19 22:00 07/26/19 22:27 Novolog Vial Sliding Scale - SQ 4 units HS [facility] Administration Protocol Insulin Detemir 20 units 07/25/19 22:00 07/26/19 22:27 Levemir Vial SQ 20 units HS [facility] Administration AP: Lt 3rd toe gangrene/OM s/p amputation T2DM: uncontrolled sec to noncompliance with meds Acute Kidney Injury Local wound care IV Abx Monitor renal function Diet exercise discussed Diabetes education done. Increase Levemir 24 units daily Increase Novolog SS coverage
[2019-07-27] MEDS: HEPARIN NA (PORCINE) 5,000 UNITS/ML 1ML VIAL SQ SCH ×2 (10:47→22:27)
[2019-07-27] MEDS: amLODIPine BESYLATE 5 MG TABLET (FP) PO SCH (10:47)
[2019-07-27] MEDS: ACETAMINOPHEN 325 MG TABLET (FP) PO PRN (10:58)
--- NOTE | 2019-07-27 11:48 | PN ---
Progress Note, Physician History of Present Illness: stable no new issues - Current Medication List Current Medications: Active Medications Acetaminophen (Tylenol -) 650 mg PO Q6H PRN PRN Reason: FEVER Last Admin: 07/27/19 10:58 Dose: 650 mg Amlodipine Besylate (Norvasc -) 5 mg PO DAILY [facility] Last Admin: 07/27/19 10:47 Dose: 5 mg Heparin Sodium (Porcine) (Heparin -) 5,000 unit SQ BID [facility] Last Admin: 07/27/19 10:47 Dose: 5,000 unit Sodium Chloride (Normal Saline -) 1,000 mls @ 50 mls/hr IV ASDIR [facility] Last Admin: 07/27/19 06:28 Dose: 50 mls/hr Piperacillin Sod/Tazobactam (Sod 2.25 gm/ Dextrose) 50 mls @ 100 mls/hr IVPB Q8H-IV [facility]; Protocol Last Admin: 07/27/19 10:47 Dose: 100 mls/hr Insulin Aspart (Novolog Vial Sliding Scale -) 1 vial SQ HS [facility]; Protocol Last Admin: 07/26/19 22:27 Dose: 4 units Insulin Aspart (Novolog Vial Sliding Scale -) 1 vial SQ TIDAC [facility]; Protocol Insulin Detemir (Levemir Vial) 24 units SQ HS CANDELARIA - Objective Vital Signs: Vital Signs Temperature 98.9 F 07/27/19 10:00 Pulse Rate 80 07/27/19 10:00 Respiratory Rate 18 07/27/19 10:00 Blood Pressure 154/71 07/27/19 10:00 O2 Sat by Pulse Oximetry (%) 99 07/26/19 21:00 Constitutional: Yes: No Distress, Calm Cardiovascular: Yes: S1, S2 Respiratory: Yes: Regular, CTA Bilaterally Gastrointestinal: Yes: Normal Bowel Sounds, Soft Musculoskeletal: Yes: WNL Extremities: Yes: Other Wound/Incision: Yes: Dressing Dry and Intact Neurological: Yes: Alert, Oriented Psychiatric: Yes: Alert, Oriented Labs: CBC, BMP 07/27/19 06:58 07/27/19 06:58 INR, PTT INR 1.16 (0.83-1.09) H 07/21/19 07:35 Assessment/Plan Problem List - Problems (1) Diabetic foot ulcer Code(s): E11.621 - TYPE 2 DIABETES MELLITUS WITH FOOT ULCER; L97.509 - NON- PRESSURE CHRONIC ULCER OTH PRT UNSP FOOT W UNSP SEVERITY (2) Uncontrolled diabetes mellitus Code(s): E11.65 - TYPE 2 DIABETES MELLITUS WITH HYPERGLYCEMIA (3) Open wound of left great toe Code(s): S91.102A - UNSP OPEN WOUND OF LEFT GREAT TOE W/O DAMAGE TO NAIL, INIT Qualifiers: Encounter type: subsequent encounter Qualified Code(s): S91.102D - Unspecified open wound of left great toe without damage to nail, subsequent encounter wound infection gangrene of the toe plan will check vanco level tomorrow monitor creatinine rest as per the team
--- NOTE | 2019-07-27 13:01 | PN ---
Progress Note, Physician History of Present Illness: Pt seen and examined at bedside. He is awake and alert. he denies shortness of breath. - Current Medication List Current Medications: Active Medications Acetaminophen (Tylenol -) 650 mg PO Q6H PRN PRN Reason: FEVER Last Admin: 07/27/19 10:58 Dose: 650 mg Amlodipine Besylate (Norvasc -) 5 mg PO DAILY [facility] Last Admin: 07/27/19 10:47 Dose: 5 mg Heparin Sodium (Porcine) (Heparin -) 5,000 unit SQ BID [facility] Last Admin: 07/27/19 10:47 Dose: 5,000 unit Sodium Chloride (Normal Saline -) 1,000 mls @ 50 mls/hr IV ASDIR [facility] Last Admin: 07/27/19 06:28 Dose: 50 mls/hr Piperacillin Sod/Tazobactam (Sod 2.25 gm/ Dextrose) 50 mls @ 100 mls/hr IVPB Q8H-IV [facility]; Protocol Last Admin: 07/27/19 10:47 Dose: 100 mls/hr Insulin Aspart (Novolog Vial Sliding Scale -) 1 vial SQ HS [facility]; Protocol Last Admin: 07/26/19 22:27 Dose: 4 units Insulin Aspart (Novolog Vial Sliding Scale -) 1 vial SQ TIDAC [facility]; Protocol Last Admin: 07/27/19 11:59 Dose: 10 units Insulin Detemir (Levemir Vial) 24 units SQ HS [facility] - Objective Vital Signs: Vital Signs Temperature 98.9 F 07/27/19 10:00 Pulse Rate 80 07/27/19 10:00 Respiratory Rate 18 07/27/19 10:00 Blood Pressure 154/71 07/27/19 10:00 O2 Sat by Pulse Oximetry (%) 99 07/26/19 21:00 Constitutional: Yes: Calm Eyes: Yes: Conjunctiva Clear HENT: Yes: Atraumatic Neck: Yes: Supple Cardiovascular: Yes: S1, S2 Respiratory: Yes: CTA Bilaterally Gastrointestinal: Yes: Soft Edema: No Wound/Incision: Yes: Dressing Dry and Intact Neurological: Yes: Oriented Psychiatric: Yes: Oriented Labs: CBC, BMP 07/27/19 06:58 07/27/19 06:58 INR, PTT INR 1.16 (0.83-1.09) H 07/21/19 07:35 Problem List - Problems (1) VARUN (acute kidney injury) Code(s): N17.9 - ACUTE KIDNEY FAILURE, UNSPECIFIED (2) Diabetic foot ulcer Code(s): E11.621 - TYPE 2 DIABETES MELLITUS WITH FOOT ULCER; L97.509 - NON- PRESSURE CHRONIC ULCER OTH PRT UNSP FOOT W UNSP SEVERITY (3) Osteomyelitis Code(s): M86.9 - OSTEOMYELITIS, UNSPECIFIED Assessment/Plan Current Medications Generic Name Dose Route Start Last Admin Trade Name Freq PRN Reason Stop Dose Admin Acetaminophen 650 mg 07/21/19 13:15 07/27/19 10:58 Tylenol - PO 650 mg Q6H PRN Administration FEVER Amlodipine Besylate 5 mg 07/25/19 18:15 07/27/19 10:47 Norvasc - PO 5 mg DAILY [facility] Administration Heparin Sodium (Porcine) 5,000 unit 07/21/19 22:00 07/27/19 10:47 Heparin - SQ 5,000 unit BID [facility] Administration Sodium Chloride 1,000 mls @ 50 mls/hr 07/21/19 13:15 07/27/19 06:28 Normal Saline - IV 50 mls/hr ASDIR [facility] Administration Piperacillin Sod/Tazobactam 50 mls @ 100 mls/hr 07/26/19 12:23 07/27/19 10:47 Sod 2.25 gm/ Dextrose IVPB 100 mls/hr Q8H-IV [facility] Administration Protocol Insulin Aspart 1 vial 07/25/19 22:00 07/26/19 22:27 Novolog Vial Sliding Scale - SQ 4 units HS [facility] Administration Protocol Insulin Aspart 1 vial 07/27/19 11:00 07/27/19 11:59 Novolog Vial Sliding Scale - SQ 10 units TIDAC [facility] Administration Protocol Insulin Detemir 24 units 07/27/19 22:00 Levemir Vial SQ HS [facility] Laboratory Tests 07/25/19 15:10 Urine Protein Negative Urine Blood Negative Impression 1. VARUN 2. DFU 3. DM Plan - will increase fluids - repeat labs in am - ua neg for blood or protein - renal ultrasound reviewed - anx per ID - follow urine eos - avoid nsaids
[2019-07-27] MEDS: SODIUM CHLORIDE 0.45% 1,000 ML IV SCH (15:29)
--- NOTE | 2019-07-27 19:18 | PN ---
Progress Note, Physician - Current Medication List Current Medications: Active Medications Acetaminophen (Tylenol -) 650 mg PO Q6H PRN PRN Reason: FEVER Last Admin: 07/27/19 10:58 Dose: 650 mg Amlodipine Besylate (Norvasc -) 5 mg PO DAILY [facility] Last Admin: 07/27/19 10:47 Dose: 5 mg Heparin Sodium (Porcine) (Heparin -) 5,000 unit SQ BID [facility] Last Admin: 07/27/19 10:47 Dose: 5,000 unit Piperacillin Sod/Tazobactam (Sod 2.25 gm/ Dextrose) 50 mls @ 100 mls/hr IVPB Q8H-IV [facility]; Protocol Last Admin: 07/27/19 18:18 Dose: 100 mls/hr Sodium Chloride (1/2 Normal Saline) 1,000 mls @ 83 mls/hr IV ASDIR [facility] Last Admin: 07/27/19 15:29 Dose: 83 mls/hr Insulin Aspart (Novolog Vial Sliding Scale -) 1 vial SQ HS [facility]; Protocol Last Admin: 07/26/19 22:27 Dose: 4 units Insulin Aspart (Novolog Vial Sliding Scale -) 1 vial SQ TIDAC [facility]; Protocol Last Admin: 07/27/19 17:29 Dose: 8 units Insulin Detemir (Levemir Vial) 24 units SQ HS [facility] - Objective Vital Signs: Vital Signs Temperature 98.6 F 07/27/19 15:51 Pulse Rate 66 07/27/19 15:51 Respiratory Rate 20 07/27/19 15:51 Blood Pressure 139/73 07/27/19 15:51 O2 Sat by Pulse Oximetry (%) 100 07/27/19 09:00 Constitutional: Yes: No Distress HENT: Yes: Atraumatic Neck: Yes: Supple Cardiovascular: Yes: Regular Rate and Rhythm Respiratory: Yes: CTA Bilaterally Gastrointestinal: Yes: Normal Bowel Sounds Extremities: Yes: Other (L foot in dressing) Edema: No Neurological: Yes: Alert, Oriented Labs: CBC, BMP 07/27/19 06:58 07/27/19 06:58 INR, PTT INR 1.16 (0.83-1.09) H 07/21/19 07:35 Problem List - Problems (1) Diabetic foot ulcer Assessment/Plan: on iv abx wound care s/p surgery awaiting id to let us know about abx Code(s): E11.621 - TYPE 2 DIABETES MELLITUS WITH FOOT ULCER; L97.509 - NON- PRESSURE CHRONIC ULCER OTH PRT UNSP FOOT W UNSP SEVERITY (2) Uncontrolled diabetes mellitus Assessment/Plan: insulin , bgms endo consult Code(s): E11.65 - TYPE 2 DIABETES MELLITUS WITH HYPERGLYCEMIA (3) Open wound of left great toe Code(s): S91.102A - UNSP OPEN WOUND OF LEFT GREAT TOE W/O DAMAGE TO NAIL, INIT Qualifiers: Encounter type: subsequent encounter Qualified Code(s): S91.102D - Unspecified open wound of left great toe without damage to nail, subsequent encounter
[2019-07-27] MEDS: INSULIN (LEVEMIR) 100 UNITS/ML UNITS SQ SCH (22:27)
[2019-07-28] MEDS ORDERED: PIPERACILLIN/TAZOBACTAM 2.25 GM VIAL IVPB ONE ×3 (01:23→16:54)
[2019-07-28] MEDS ORDERED: DEXTROSE 5%-WATER - 50 ML IVPB ONE ×3 (01:23→16:54)
[2019-07-28] MEDS: PIPERACILLIN/TAZOB 2.25 GM 2.25 GM in DEXTROSE 5%-WATER - 50 ML IVPB SCH ×3 (01:25→17:24)
[2019-07-28] MEDS: SODIUM CHLORIDE 0.45% 1,000 ML IV SCH ×3 (05:43→17:26)
[2019-07-28] MEDS: INSULIN SLIDING SCALE (NOVOLOG) 1 VIAL SQ SCH ×4 (06:10→21:41)
[2019-07-28 08:12] LABS: HEMATOCRIT 38.1 % (35.4-49); HEMOGLOBIN 12.9 GM/dL (11.7-16.9); MCH 29.3 pg (25.7-33.7); MCHC 33.9 g/dl (32.0-35.9); MEAN CELL VOLUME 86.4 fl (80-96); MEAN PLT VOLUME 8.5 fl (7.5-11.1); PLATELET COUNT 357 K/MM3 (134-434); RBC 4.41 M/mm3 (4.00-5.60); RDW 12.7 % (11.9-15.9); WHITE BLOOD COUNT 7.1 K/mm3 (4.0-10.0)
[2019-07-28] MEDS ORDERED: PT OWN MED DRAWER 7, Y5N ONE (08:40)
[2019-07-28 09:03] LABS: BILIRUBIN,TOTAL 0.6 mg/dL (0.2-1); BLOOD UREA NITROGEN 24.6 mg/dL (7-18); CALCIUM 9.9 mg/dL (8.5-10.1); CREATININE 2.3 mg/dL (0.55-1.3); POTASSIUM 4.1 mmol/L (3.5-5.1)
[2019-07-28] MEDS: HEPARIN NA (PORCINE) 5,000 UNITS/ML 1ML VIAL SQ SCH (10:21)
[2019-07-28] MEDS: amLODIPine BESYLATE 5 MG TABLET (FP) PO SCH (10:23)
--- NOTE | 2019-07-28 15:58 | PN ---
Progress Note, Physician - Current Medication List Current Medications: Active Medications Acetaminophen (Tylenol -) 650 mg PO Q6H PRN PRN Reason: FEVER Last Admin: 07/27/19 10:58 Dose: 650 mg Amlodipine Besylate (Norvasc -) 5 mg PO DAILY [facility] Last Admin: 07/28/19 10:23 Dose: 5 mg Heparin Sodium (Porcine) (Heparin -) 5,000 unit SQ BID [facility] Last Admin: 07/28/19 10:21 Dose: 5,000 unit Piperacillin Sod/Tazobactam (Sod 2.25 gm/ Dextrose) 50 mls @ 100 mls/hr IVPB Q8H-IV [facility]; Protocol Last Admin: 07/28/19 10:21 Dose: 100 mls/hr Sodium Chloride (1/2 Normal Saline) 1,000 mls @ 83 mls/hr IV ASDIR [facility] Last Admin: 07/28/19 14:07 Dose: Not Given Insulin Aspart (Novolog Vial Sliding Scale -) 1 vial SQ HS [facility]; Protocol Last Admin: 07/27/19 22:27 Dose: Not Given Insulin Aspart (Novolog Vial Sliding Scale -) 1 vial SQ TIDAC [facility]; Protocol Last Admin: 07/28/19 14:06 Dose: 8 units Insulin Detemir (Levemir Vial) 24 units SQ HS [facility] Last Admin: 07/27/19 22:27 Dose: 24 units - Objective Vital Signs: Vital Signs Temperature 98.9 F 07/28/19 15:08 Pulse Rate 78 07/28/19 15:08 Respiratory Rate 18 07/28/19 15:08 Blood Pressure 139/75 07/28/19 15:08 O2 Sat by Pulse Oximetry (%) 100 07/27/19 21:00 Labs: CBC, BMP 07/28/19 07:25 07/28/19 07:25 INR, PTT INR 1.16 (0.83-1.09) H 07/21/19 07:35 Problem List - Problems (1) Diabetic foot ulcer Code(s): E11.621 - TYPE 2 DIABETES MELLITUS WITH FOOT ULCER; L97.509 - NON- PRESSURE CHRONIC ULCER OTH PRT UNSP FOOT W UNSP SEVERITY (2) Uncontrolled diabetes mellitus Code(s): E11.65 - TYPE 2 DIABETES MELLITUS WITH HYPERGLYCEMIA (3) Open wound of left great toe Code(s): S91.102A - UNSP OPEN WOUND OF LEFT GREAT TOE W/O DAMAGE TO NAIL, INIT Qualifiers: Encounter type: subsequent encounter Qualified Code(s): S91.102D - Unspecified open wound of left great toe without damage to nail, subsequent encounter
--- NOTE | 2019-07-28 19:19 | PN ---
Progress Note, Physician History of Present Illness: Pt seen and examined at bedside. He is awake and alert. He denies shortness of breath. He denies fevers or chills. - Current Medication List Current Medications: Active Medications Acetaminophen (Tylenol -) 650 mg PO Q6H PRN PRN Reason: FEVER Last Admin: 07/27/19 10:58 Dose: 650 mg Amlodipine Besylate (Norvasc -) 5 mg PO DAILY [facility] Last Admin: 07/28/19 10:23 Dose: 5 mg Heparin Sodium (Porcine) (Heparin -) 5,000 unit SQ BID [facility] Last Admin: 07/28/19 10:21 Dose: 5,000 unit Piperacillin Sod/Tazobactam (Sod 2.25 gm/ Dextrose) 50 mls @ 100 mls/hr IVPB Q8H-IV [facility]; Protocol Last Admin: 07/28/19 17:24 Dose: 100 mls/hr Sodium Chloride (1/2 Normal Saline) 1,000 mls @ 83 mls/hr IV ASDIR [facility] Last Admin: 07/28/19 17:26 Dose: 83 mls/hr Insulin Aspart (Novolog Vial Sliding Scale -) 1 vial SQ HS [facility]; Protocol Last Admin: 07/27/19 22:27 Dose: Not Given Insulin Aspart (Novolog Vial Sliding Scale -) 1 vial SQ TIDAC [facility]; Protocol Last Admin: 07/28/19 17:26 Dose: 12 units Insulin Detemir (Levemir Vial) 24 units SQ HS [facility] Last Admin: 07/27/19 22:27 Dose: 24 units - Objective Vital Signs: Vital Signs Temperature 98.9 F 07/28/19 15:08 Pulse Rate 78 07/28/19 15:08 Respiratory Rate 18 07/28/19 15:08 Blood Pressure 139/75 07/28/19 15:08 O2 Sat by Pulse Oximetry (%) 100 07/28/19 09:00 Constitutional: Yes: Calm Eyes: Yes: Conjunctiva Clear HENT: Yes: Atraumatic Cardiovascular: Yes: S1, S2 Respiratory: Yes: CTA Bilaterally Gastrointestinal: Yes: Soft Genitourinary: Yes: WNL Musculoskeletal: Yes: WNL Edema: No Wound/Incision: Yes: Dressing Dry and Intact Neurological: Yes: Oriented Psychiatric: Yes: Oriented Labs: CBC, BMP 07/28/19 07:25 07/28/19 07:25 INR, PTT INR 1.16 (0.83-1.09) H 07/21/19 07:35 Problem List - Problems (1) VARUN (acute kidney injury) Code(s): N17.9 - ACUTE KIDNEY FAILURE, UNSPECIFIED (2) Diabetic foot ulcer Code(s): E11.621 - TYPE 2 DIABETES MELLITUS WITH FOOT ULCER; L97.509 - NON- PRESSURE CHRONIC ULCER OTH PRT UNSP FOOT W UNSP SEVERITY (3) Osteomyelitis Code(s): M86.9 - OSTEOMYELITIS, UNSPECIFIED Assessment/Plan Current Medications Generic Name Dose Route Start Last Admin Trade Name Freq PRN Reason Stop Dose Admin Acetaminophen 650 mg 07/21/19 13:15 07/27/19 10:58 Tylenol - PO 650 mg Q6H PRN Administration FEVER Amlodipine Besylate 5 mg 07/25/19 18:15 07/28/19 10:23 Norvasc - PO 5 mg DAILY [facility] Administration Heparin Sodium (Porcine) 5,000 unit 07/21/19 22:00 07/28/19 10:21 Heparin - SQ 5,000 unit BID CANDEL[facility]IA Administration Piperacillin Sod/Tazobactam 50 mls @ 100 mls/hr 07/26/19 12:23 07/28/19 17:24 Sod 2.25 gm/ Dextrose IVPB 100 mls/hr Q8H-IV [facility] Administration Protocol Sodium Chloride 1,000 mls @ 83 mls/hr 07/27/19 13:15 07/28/19 17:26 1/2 Normal Saline IV 83 mls/hr ASDIR [facility] Administration Insulin Aspart 1 vial 07/25/19 22:00 07/27/19 22:27 Novolog Vial Sliding Scale - SQ Not Given HS [facility] Protocol Insulin Aspart 1 vial 07/27/19 11:00 07/28/19 17:26 Novolog Vial Sliding Scale - SQ 12 units TIDAC [facility] Administration Protocol Insulin Detemir 24 units 07/27/19 22:00 07/27/19 22:27 Levemir Vial SQ 24 units HS [facility] Administration Laboratory Tests 07/25/19 07/25/19 15:10 15:10 Urine Protein Negative Urine Blood Negative Urine Eosinophils None seen Impression 1. VARUN 2. DFU 3. DM Plan - cont fluids - renal ultrasound reviewed - ua neg for blood or protien - urine eos negative - renal function is not improving - follow serologic workup
[2019-07-28] MEDS: INSULIN (LEVEMIR) 100 UNITS/ML UNITS SQ SCH (21:41)
[2019-07-29] MEDS ORDERED: DEXTROSE 5%-WATER - 50 ML IVPB ONE ×2 (01:30→11:17)
[2019-07-29] MEDS ORDERED: PIPERACILLIN/TAZOBACTAM 2.25 GM VIAL IVPB ONE ×2 (01:30→11:17)
[2019-07-29] MEDS: PIPERACILLIN/TAZOB 2.25 GM 2.25 GM in DEXTROSE 5%-WATER - 50 ML IVPB SCH ×2 (01:41→11:20)
[2019-07-29] MEDS: INSULIN SLIDING SCALE (NOVOLOG) 1 VIAL SQ SCH ×2 (06:11→13:24)
[2019-07-29] MEDS: amLODIPine BESYLATE 5 MG TABLET (FP) PO SCH (11:21)
--- NOTE | 2019-07-29 12:23 | PN ---
Progress Note, Physician History of Present Illness: patient stable no new issues - Current Medication List Current Medications: Active Medications Acetaminophen (Tylenol -) 650 mg PO Q6H PRN PRN Reason: FEVER Last Admin: 07/27/19 10:58 Dose: 650 mg Amlodipine Besylate (Norvasc -) 5 mg PO DAILY [facility]DELARIA Last Admin: 07/29/19 11:21 Dose: 5 mg Piperacillin Sod/Tazobactam (Sod 2.25 gm/ Dextrose) 50 mls @ 100 mls/hr IVPB Q8H-IV [facility]; Protocol Last Admin: 07/29/19 11:20 Dose: 100 mls/hr Sodium Chloride (1/2 Normal Saline) 1,000 mls @ 83 mls/hr IV ASDIR [facility] Last Admin: 07/28/19 17:26 Dose: 83 mls/hr Daptomycin 650 mg/ Sodium (Chloride) 50 mls @ 50 mls/hr IVPB DAILY [facility]; Protocol Insulin Aspart (Novolog Vial Sliding Scale -) 1 vial SQ HS [facility]; Protocol Last Admin: 07/28/19 21:41 Dose: 2 units Insulin Aspart (Novolog Vial Sliding Scale -) 1 vial SQ TIDAC [facility]; Protocol Last Admin: 07/29/19 06:11 Dose: 8 units Insulin Detemir (Levemir Vial) 24 units SQ HS [facility] Last Admin: 07/28/19 21:41 Dose: 24 units - Objective Vital Signs: Vital Signs Temperature 98 F 07/29/19 10:00 Pulse Rate 75 07/29/19 10:00 Respiratory Rate 18 07/29/19 10:00 Blood Pressure 165/75 07/29/19 10:00 O2 Sat by Pulse Oximetry (%) 100 07/29/19 08:50 Constitutional: Yes: No Distress, Calm Cardiovascular: Yes: S1, S2 Respiratory: Yes: Regular, CTA Bilaterally Gastrointestinal: Yes: Normal Bowel Sounds, Soft Musculoskeletal: Yes: WNL Extremities: Yes: Other Neurological: Yes: Alert, Oriented Psychiatric: Yes: Alert, Oriented Labs: CBC, BMP 07/28/19 07:25 07/28/19 07:25 INR, PTT INR 1.16 (0.83-1.09) H 07/21/19 07:35 Assessment/Plan Problem List - Problems (1) Diabetic foot ulcer Code(s): E11.621 - TYPE 2 DIABETES MELLITUS WITH FOOT ULCER; L97.509 - NON- PRESSURE CHRONIC ULCER OTH PRT UNSP FOOT W UNSP SEVERITY (2) Uncontrolled diabetes mellitus Code(s): E11.65 - TYPE 2 DIABETES MELLITUS WITH HYPERGLYCEMIA (3) Open wound of left great toe Code(s): S91.102A - UNSP OPEN WOUND OF LEFT GREAT TOE W/O DAMAGE TO NAIL, INIT Qualifiers: Encounter type: subsequent encounter Qualified Code(s): S91.102D - Unspecified open wound of left great toe without damage to nail, subsequent encounter wound infection gangrene of the toe plan patients renal function continues to detoriate i have switched patient to dapto instead of vanco spoke with cal from my side patient cleared to be d/c
--- NOTE | 2019-07-29 12:51 | DS ---
Physical Examination Vital Signs: Vital Signs Temperature 98 F 07/29/19 10:00 Pulse Rate 75 07/29/19 10:00 Respiratory Rate 18 07/29/19 10:00 Blood Pressure 165/75 07/29/19 10:00 O2 Sat by Pulse Oximetry (%) 100 07/29/19 08:50 Labs: CBC, BMP 07/28/19 07:25 07/28/19 07:25 Discharge Summary Problems reviewed: Yes Reason For Visit: DIABETIC FOOT ULCER Current Active Problems VARUN (acute kidney injury) (Acute) Diabetic foot ulcer (Acute) Osteomyelitis (Acute) Toe necrosis (Acute) Uncontrolled diabetes mellitus (Acute) - Instructions Diet, Activity, Other Instructions: FOLLOW UP WOUND CARE CLINIC continue abx...DR DUCKWORTH...on daptomycin now will need It for 4-6 weeks wound care Referrals: Jasvir Solano MD [Primary Care Provider] - Enmanuel Duckworth MD [Staff Physician] - - Home Medications Comprehensive Discharge Medication List: Ambulatory Orders Collagenase Clostridium Hist. [Santyl] 1 applic TP DAILY #90 oint...g. 07/27/17 Becaplermin [Regranex] 15 gm TP DAILY #1 gel..gram. 08/07/17 Daptomycin [Cubicin (Restricted To Id) -] 650 mg IVPB DAILY@1300 #30 vial 07/29 [facility]
[2019-07-29] MEDS ORDERED: DAPTOMYCIN 650 MG in SODIUM CHLORIDE 50 ML IVPB SCH (13:00)
--- NOTE | 2019-07-29 13:47 | PN ---
Progress Note, Physician History of Present Illness: Pt seen and examined at bedside. He is awake and alert. he denies dysuria or hematuria. He denies shortness of breath. - Current Medication List Current Medications: Active Medications Acetaminophen (Tylenol -) 650 mg PO Q6H PRN PRN Reason: FEVER Last Admin: 07/27/19 10:58 Dose: 650 mg Amlodipine Besylate (Norvasc -) 5 mg PO DAILY [facility]ARIA Last Admin: 07/29/19 11:21 Dose: 5 mg Piperacillin Sod/Tazobactam (Sod 2.25 gm/ Dextrose) 50 mls @ 100 mls/hr IVPB Q8H-IV [facility]; Protocol Last Admin: 07/29/19 11:20 Dose: 100 mls/hr Sodium Chloride (1/2 Normal Saline) 1,000 mls @ 83 mls/hr IV ASDIR [facility] Last Admin: 07/28/19 17:26 Dose: 83 mls/hr Daptomycin 650 mg/ Sodium (Chloride) 50 mls @ 100 mls/hr IVPB DAILY@1300 [facility]; Protocol Insulin Aspart (Novolog Vial Sliding Scale -) 1 vial SQ HS [facility]; Protocol Last Admin: 07/28/19 21:41 Dose: 2 units Insulin Aspart (Novolog Vial Sliding Scale -) 1 vial SQ TIDAC [facility]; Protocol Last Admin: 07/29/19 13:24 Dose: 12 units Insulin Detemir (Levemir Vial) 24 units SQ HS [facility] Last Admin: 07/28/19 21:41 Dose: 24 units - Objective Vital Signs: Vital Signs Temperature 98 F 07/29/19 10:00 Pulse Rate 75 07/29/19 10:00 Respiratory Rate 18 07/29/19 10:00 Blood Pressure 165/75 07/29/19 10:00 O2 Sat by Pulse Oximetry (%) 100 07/29/19 08:50 Constitutional: Yes: Calm Eyes: Yes: Conjunctiva Clear HENT: Yes: Atraumatic Neck: Yes: Supple Cardiovascular: Yes: S1, S2 Respiratory: Yes: CTA Bilaterally Gastrointestinal: Yes: Soft Genitourinary: Yes: WNL Musculoskeletal: Yes: WNL Edema: No Wound/Incision: Yes: Dressing Dry and Intact Neurological: Yes: Oriented Psychiatric: Yes: Oriented Labs: CBC, BMP 07/28/19 07:25 07/28/19 07:25 INR, PTT INR 1.16 (0.83-1.09) H 07/21/19 07:35 Problem List - Problems (1) VARUN (acute kidney injury) Code(s): N17.9 - ACUTE KIDNEY FAILURE, UNSPECIFIED (2) Diabetic foot ulcer Code(s): E11.621 - TYPE 2 DIABETES MELLITUS WITH FOOT ULCER; L97.509 - NON- PRESSURE CHRONIC ULCER OTH PRT UNSP FOOT W UNSP SEVERITY (3) Osteomyelitis Code(s): M86.9 - OSTEOMYELITIS, UNSPECIFIED Assessment/Plan Current Medications Generic Name Dose Route Start Last Admin Trade Name Freq PRN Reason Stop Dose Admin Acetaminophen 650 mg 07/21/19 13:15 07/27/19 10:58 Tylenol - PO 650 mg Q6H PRN Administration FEVER Amlodipine Besylate 5 mg 07/25/19 18:15 07/29/19 11:21 Norvasc - PO 5 mg DAILY [facility] Administration Piperacillin Sod/Tazobactam 50 mls @ 100 mls/hr 07/26/19 12:23 07/29/19 11:20 Sod 2.25 gm/ Dextrose IVPB 100 mls/hr Q8H-IV [facility] Administration Protocol Sodium Chloride 1,000 mls @ 83 mls/hr 07/27/19 13:15 07/28/19 17:26 1/2 Normal Saline IV 83 mls/hr ASDIR [facility] Administration Daptomycin 650 mg/ Sodium 50 mls @ 100 mls/hr 07/29/19 13:00 Chloride IVPB DAILY@1300 [facility] Protocol Insulin Aspart 1 vial 07/25/19 22:00 07/28/19 21:41 Novolog Vial Sliding Scale - SQ 2 units HS [facility] Administration Protocol Insulin Aspart 1 vial 07/27/19 11:00 07/29/19 13:24 Novolog Vial Sliding Scale - SQ 12 units TIDAC [facility] Administration Protocol Insulin Detemir 24 units 07/27/19 22:00 07/28/19 21:41 Levemir Vial SQ 24 units HS [facility] Administration Laboratory Tests 07/28/19 07/28/19 11:46 11:46 KARUNA M-Seven Pending [place] Screen Pending c-ANCA Pending Proteinase 3 (PR3) Pending p-ANCA Pending Atypical p-ANCA Pending Myeloperoxidase Ab Pending Double Strand DNA Ab Pending Glomerular Base Memb Ab Pending Impression 1. VARUN 2. DFU 3. 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
--- NOTE | 2019-07-29 13:54 | PN ---
Progress Note (short form) - Note Progress Note: Denies any complaints Blood sugar improving No Hypos Vital Signs Period Temp Pulse Resp BP Sys/Jackson Pulse Ox Last 24 Hr 97.6 F-98.9 F 72-81 18-18 139-165/74-75 100-100 PE: AOX3 Neck: Supple, No jvd Lungs: CTA CVs: s1S2 Abd: Benign Ext: Left foot dressing Rt foot amputation 1st and 2nd toes Neuro: No focal deficit CMP Sodium 138 mmol/L (136-145) 07/28/19 07:25 Potassium 4.1 mmol/L (3.5-5.1) 07/28/19 07:25 Chloride 102 mmol/L (98-107) 07/28/19 07:25 Carbon Dioxide 27 mmol/L (21-32) 07/28/19 07:25 Anion Gap 9 MMOL/L (8-16) 07/28/19 07:25 BUN 24.6 mg/dL (7-18) H 07/28/19 07:25 Creatinine 2.3 mg/dL (0.55-1.3) H 07/28/19 07:25 Est GFR (CKD-EPI)AfAm 34.00 07/28/19 07:25 Est GFR (CKD-EPI)NonAf 29.34 07/28/19 07:25 POC Glucometer 287 UNITS (80-120) 07/29/19 13:10 Random Glucose 87 mg/dL (74-106) 07/28/19 07:25 Hemoglobin A1c % 13.9 % (4.2-6.3) H 07/26/19 06:00 Lactic Acid 1.7 mmol/L (0.4-2.0) 07/18/19 16:23 Calcium 9.9 mg/dL (8.5-10.1) 07/28/19 07:25 Total Bilirubin 0.6 mg/dL (0.2-1) 07/28/19 07:25 AST 13 U/L (15-37) L 07/28/19 07:25 ALT 15 U/L (13-61) 07/28/19 07:25 Alkaline Phosphatase 67 U/L (45-117) 07/28/19 07:25 Total Protein 8.0 g/dl (6.4-8.2) 07/28/19 07:25 Albumin 3.0 g/dl (3.4-5.0) L 07/28/19 07:25 Triglycerides 141 mg/dL (0-150) 07/26/19 06:00 Cholesterol 126 mg/dL (50-200) 07/26/19 06:00 Total LDL Cholesterol 56 mg/dL (5-100) 07/26/19 06:00 HDL Cholesterol 43 mg/dL (40-60) 07/26/19 06:00 Beta-Hydroxybutyrate 12.7 mg/dL (0.2-2.8) H 07/18/19 16:23 Current Medications Generic Name Dose Route Start Last Admin Trade Name Freq PRN Reason Stop Dose Admin Acetaminophen 650 mg 07/21/19 13:15 07/27/19 10:58 Tylenol - PO 650 mg Q6H PRN Administration FEVER Amlodipine Besylate 5 mg 07/25/19 18:15 07/29/19 11:21 Norvasc - PO 5 mg DAILY [facility] Administration Piperacillin Sod/Tazobactam 50 mls @ 100 mls/hr 07/26/19 12:23 07/29/19 11:20 Sod 2.25 gm/ Dextrose IVPB 100 mls/hr Q8H-IV [facility] Administration Protocol Sodium Chloride 1,000 mls @ 83 mls/hr 07/27/19 13:15 07/28/19 17:26 1/2 Normal Saline IV 83 mls/hr ASDIR [facility] Administration Daptomycin 650 mg/ Sodium 50 mls @ 100 mls/hr 07/29/19 13:00 Chloride IVPB DAILY@1300 [facility] Protocol Insulin Aspart 1 vial 07/25/19 22:00 07/28/19 21:41 Novolog Vial Sliding Scale - SQ 2 units HS [facility] Administration Protocol Insulin Aspart 1 vial 07/27/19 11:00 07/29/19 13:24 Novolog Vial Sliding Scale - SQ 12 units TIDAC [facility] Administration Protocol Insulin Detemir 24 units 07/27/19 22:00 07/28/19 21:41 Levemir Vial SQ 24 units HS [facility] Administration AP: Lt 3rd toe gangrene/OM s/p amputation T2DM: uncontrolled sec to noncompliance with meds Acute Kidney Injury Local wound care IV Abx Monitor renal function Diet exercise discussed Diabetes education done. Levemir 24 units daily Novolog SS coverage Pt to continue current Insulin regimen at home when discharged and f/u in office in one week. Pt to call [phone] for appt next week.
[2019-07-29] MEDS: SODIUM CHLORIDE 0.45% 1,000 ML IV SCH (14:18)
[2019-07-29 15:10] VITALS: BP 159/87; PULSE 80; TEMP 98.1
[2019-08-01 10:08] LABS: ANTIGLOMERULAR BASEMENT MEN.AB 2 units (0-20)
[2019-08-01 17:06] LABS: ATYPICAL pANCA <1:20 titer (Neg:<1:20); C-ANCA <1:20 titer (Neg:<1:20)
--- NOTE | 2019-08-08 15:04 | OP ---
DATE OF OPERATION: 07/21/2019 PREOPERATIVE INDICATIONS: Left foot 3rd digit gangrene. POSTOPERATIVE DIAGNOSIS: Left foot 3rd digit gangrene. PROCEDURE PERFORMED: Left foot 3rd digit amputation. SURGEON: Benigno Fallon DPM ANESTHESIA: IV sedation and local injections. INDICATIONS: The patient is a 64-year-old male with the above-mentioned diagnosis. The patient exhausted all forms of conservative treatment at this time and requires further surgical interventions. Preoperative questions were addressed. Consent was then signed, n.p.o. status was verified. Attention was directed to the patient's left foot, where there was noted to be gangrenous changes of the left 3rd digit. At this time, utilizing a number 15 blade, a semi-circular incision was made directly overlying the 3rd metatarsophalangeal joint. This was then deepened down to the level of the 3rd metatarsophalangeal joint. The 3rd digit was then resected and disarticulated and passed from the operative field. A bone culture was taken from the head of the 3rd metatarsal by resection of the metatarsal head. This was sent for pathology and for microbiology. The wound was then flushed with copious amounts of normal sterile saline. The wound was then closed with 3-0 Ethilon in the normal sterile manner. Postoperative condition: The patient tolerated anesthesia and procedure well and was transferred to recovery room, vital signs stable, neurovascular status intact to the left foot. OTILIA QUEEN/[id number]
== END 2019-07-29 17:40 | disposition home health service (06) | DRG 617 ==
LOC: JER 13:35 → JERBED 18:49 → J7W 07-19 03:02
PROVIDERS: ADMIT Internal Medicine; ATTEND Internal Medicine
PROC: 0QBP0ZX Excision of Left Metatarsal, Open Approach, Diagnostic (ICD-10-PCS; 2019-07-21)
PROC: 0Y6U0Z0 Detachment at Left 3rd Toe, Complete, Open Approach (ICD-10-PCS; principal; 2019-07-21 12:09)
PROC: 02HV33Z Insertion of Infusion Device into Superior Vena Cava, Percutaneous Approach (ICD-10-PCS; 2019-07-25)
PROC: B518ZZA Fluoroscopy of Superior Vena Cava, Guidance (ICD-10-PCS; 2019-07-25)
DX: E11.621 Type 2 diabetes mellitus with foot ulcer (principal); E11.52 Type 2 diabetes mellitus with diabetic peripheral angiopathy with gangrene; L97.528 Non-pressure chronic ulcer of other part of left foot with other specified severity; I96 Gangrene, not elsewhere classified; M86.672 Other chronic osteomyelitis, left ankle and foot; N17.9 Acute kidney failure, unspecified; E11.69 Type 2 diabetes mellitus with other specified complication; E11.65 Type 2 diabetes mellitus with hyperglycemia; B96.89 Other specified bacterial agents as the cause of diseases classified elsewhere; B95.1 Streptococcus, group B, as the cause of diseases classified elsewhere; B96.5 Pseudomonas (aeruginosa) (mallei) (pseudomallei) as the cause of diseases classified elsewhere; Z89.422 Acquired absence of other left toe(s); Z89.421 Acquired absence of other right toe(s); Z91.14 Patient's other noncompliance with medication regimen
CPT/HCPCS: 36415; 36569; 73630-TC-LT; 73660-TC-LT-FY; 73718-TC-LT; 76775-TC; 76856-TC; 77001-TC-FY; 80048; 80053; 80061; 81003; 82010; 82436; 82565; 82962; 83036; 83516; 83520; 83605; 83721; 84133; 84155; 84165; 84300; 85025; 85027; 85610; 86038; 86225; 86256; 86850; 86900; 86901; 87040; 87070; 87075; 87186; 87205; 88305-TC; 88311-TC; 94760; 99285-25; C1751; G0480; J0878; J1644; J7030